=== PATIENT | female | born 1950 | race Caucasian/White ===

== ENCOUNTER 2018-06-20 07:14 | Inpatient (IN) ==
--- NOTE | 2018-06-20 08:31 | ED ---
HPI General Chief complaint: Medical Clearance Stated complaint: abnormal labs/doc sent Time Seen by Provider: 06/20/18 07:52 Source: patient Mode of arrival: ambulatory Limitations: no limitations History of Present Illness HPI Narrative: 68 years old female complains of generalized malaise and weakness and shortness of breath and black tarry stool. Patient states that she started having black tarry stools for the past 3 weeks. Patient states that she has generalized malaise and weakness for the past 7 weeks. Patient states that she had intermittent nausea vomiting and poor appetite over the same time. Patient states that she has poor appetite. Patient started having right lower quadrant abdominal pain for the past week. Patient states the pain is sharp pain intermittent pain localized to right lower quadrant of the abdomen. Patient denies any pain radiation. Patient denies any fever chills. Patient is on aspirin 81 mg daily. Patient has history of COPD, diabetes status post CVA. Patient denies history of GI bleed in the past. Patient states that she had a colonoscopy done about 5 years ago and was normal. 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 Patient was seen by a local physician yesterday and had blood test done. Patient was informed that her hemoglobin is less than 3. Patient was advised to go to ED for evaluation. MD complaint: Reports melena Onset (ago): week(s) Pain Consistency: intermittent Severity: mild Relieving factors: none Exacerbating factors: none Associated symptoms: Reports abdominal pain, nausea, vomiting, loss of appetite , malaise and shortness of breath Treatments Prior to Arrival: Reports none Related Data Home Medications Medication Instructions Recorded Confirmed budesonide-formoterol [Symbicort] 2 puff INHALATION BID 06/20/18 06/20/18 esomeprazole magnesium [Nexium] 40 mg PO DAILY 06/20/18 06/20/18 levothyroxine 50 mcg PO DAILY 06/20/18 06/20/18 linaclotide [Linzess] 145 mcg PO DAILY 06/20/18 06/20/18 pioglitazone 30 mg PO DAILY 06/20/18 06/20/18 sitagliptin [Januvia] 100 mg PO DAILY 06/20/18 06/20/18 tiotropium bromide [Spiriva with 1 cap INHALATION DAILY 06/20/18 06/20/18 HandiHaler] Allergies Allergy/AdvReac Type Severity Reaction Status Date / Time hydrocodone Allergy Chest Pain Verified 06/20/18 07:25 Review of Systems ROS: all other systems reviewed are negative PMFSH Medical History Medical History Amputation of finger, left (Acute) COPD (chronic obstructive pulmonary disease) (Acute) Diabetes (Acute) H/O: hysterectomy (Acute) Stroke (Acute) Social History Social History Smoking Status: Former smoker How Often Do You Have a Drink Containing Alcohol: Never Recent Travel in [place] within the Last 8 Weeks: No Recent Out of Country Travel within the Last 8 Weeks: No Immunization History Tetanus Immunization: >5 Years Exam Narrative Exam Narrative: GENERAL: Well-nourished, well-developed patient. SKIN: Focused skin assessment warm/dry. HEAD: Normocephalic. EYES: No scleral icterus. No injection or drainage. NECK: Supple, trachea midline. No JVD or lymphadenopathy. CARDIOVASCULAR: Regular rate and rhythm without murmurs, gallops, or rubs. RESPIRATORY: Breath sounds equal bilaterally. No accessory muscle use. GASTROINTESTINAL: Abdomen soft, nondistended. Patient has mild tenderness on palpation right lower quadrant of the abdomen. No rebound tenderness. No mass. Rectal exam Hemoccult trace positive. MUSCULOSKELETAL: No cyanosis, or edema. BACK: Nontender without obvious deformity. No CVA tenderness. Neurologic exam normal. Course Initial Documented Vital Signs Temperature 98.6 F 06/20/18 07:18 Pulse Rate 120 H 06/20/18 07:18 Respiratory Rate 20 06/20/18 07:18 Blood Pressure 110/51 L 06/20/18 07:18 Pulse Oximetry 96 06/20/18 07:18 Last Documented Vital Signs Temperature 97.4 F L 06/20/18 08:19 Pulse Rate 107 H 06/20/18 11:04 Respiratory Rate 16 06/20/18 11:04 Blood Pressure 109/53 L 06/20/18 11:04 Pulse Oximetry 95 06/20/18 11:04 Medical Decision Making MDM Narrative Medical decision making narrative: 68 years old female with black tarry stool and general malaise and weakness and right lower quadrant abdominal pain. Outpatient hemoglobin is less than 3. Normal saline solution 125 cc an hour. Type and screen. Protonix bolus and drip given. Octreotide drip started. Medical Screen Exam Complete: Yes Emergency Medical Condition: Yes Lab Data Lab results reviewed: Yes I reviewed the patient's lab results. Result diagrams: 06/20/18 08:00 06/20/18 08:00 Lab Results 06/20/18 06/20/18 06/20/18 Range/Units 08:00 08:00 08:00 WBC 7.5 (4.0-11.0) th/mm3 RBC 2.77 L (4.00-5.30) mil/mm3 Hgb 4.1 L* (11.6-15.3) gm/dL Hct 15.1 L* (35.0-46.0) % MCV 54.5 L (80.0-100.0) fL MCH 14.8 L (27.0-34.0) pg MCHC 27.2 L (32.0-36.0) % RDW 22.0 H (11.6-17.2) % Plt Count 360 (150-450) th/mm3 MPV 8.9 (7.0-11.0) fL Prelim Diff (Auto) Manual diff required WBC Differential Manual diff final Seg Neuts % (Manual) 85 H (16-70) % Lymphocytes % (Manual) 9 (9-44) % Monocytes % (Manual) 4 (0-8) % Eosinophils % (Manual) 1 (0-4) % Basophils % (Manual) 1 (0-2) % Abs Neuts (Manual) 6.4 (1.8-7.7) th/mm3 Nucleated RBCs/100 WBC 1 H (0-0) /100 WBC Differential Comment . Platelet Estimate Normal (Normal) Platelet Morphology Enlarged H (Normal) Basophilic Stippling Faint H (None) Target Cells 1+ H (None) Keratocytes Occ H (None) PT 10.7 (9.8-11.6) sec INR 1.1 Ratio APTT 22.3 L (23.4-31.7) sec Sodium 140 (136-145) meq/L Potassium 2.4 L* (3.5-5.1) meq/L Chloride 102 (98-107) meq/L Carbon Dioxide 29.2 (21.0-32.0) meq/L Anion Gap 9 (5-15) meq/L BUN 7 (7-18) mg/dL Creatinine 0.86 (0.50-1.00) mg/dL Estimated GFR 66 L (>89) mL/min Random Glucose 121 H (74-106) mg/dL Calcium 8.2 L (8.5-10.1) mg/dL Total Bilirubin 0.5 (0.2-1.0) mg/dL AST 30 (15-37) U/L ALT 24 (10-53) U/L Alkaline Phosphatase 73 (45-117) U/L Total Protein 6.7 (6.4-8.2) g/dL Albumin 3.3 L (3.4-5.0) g/dL Lipase 55 L (73-393) U/L Blood Type Blood Type Recheck Antibody Screen MTS Gel Crossmatch Bld Prod Order Comment 06/20/18 06/20/18 Range/Units 08:00 09:30 WBC (4.0-11.0) th/mm3 RBC (4.00-5.30) mil/mm3 Hgb (11.6-15.3) gm/dL Hct (35.0-46.0) % MCV (80.0-100.0) fL MCH (27.0-34.0) pg MCHC (32.0-36.0) % RDW (11.6-17.2) % Plt Count (150-450) th/mm3 MPV (7.0-11.0) fL Prelim Diff (Auto) WBC Differential Seg Neuts % (Manual) (16-70) % Lymphocytes % (Manual) (9-44) % Monocytes % (Manual) (0-8) % Eosinophils % (Manual) (0-4) % Basophils % (Manual) (0-2) % Abs Neuts (Manual) (1.8-7.7) th/mm3 Nucleated RBCs/100 WBC (0-0) /100 WBC Differential Comment Platelet Estimate (Normal) Platelet Morphology (Normal) Basophilic Stippling (None) Target Cells (None) Keratocytes (None) PT (9.8-11.6) sec INR Ratio APTT (23.4-31.7) sec Sodium (136-145) meq/L Potassium (3.5-5.1) meq/L Chloride (98-107) meq/L Carbon Dioxide (21.0-32.0) meq/L Anion Gap (5-15) meq/L BUN (7-18) mg/dL Creatinine (0.50-1.00) mg/dL Estimated GFR (>89) mL/min Random Glucose (74-106) mg/dL Calcium (8.5-10.1) mg/dL Total Bilirubin (0.2-1.0) mg/dL AST (15-37) U/L ALT (10-53) U/L Alkaline Phosphatase (45-117) U/L Total Protein (6.4-8.2) g/dL Albumin (3.4-5.0) g/dL Lipase (73-393) U/L Blood Type O Positive Blood Type Recheck Required Antibody Screen Negative MTS Gel Crossmatch See Detail Bld Prod Order Comment Imaging Data Attestation: I personally reviewed and interpreted this imaging study as follows : Radiologist's impression: Abdomen/Pelvis CT 06/20/18 09:54 CONCLUSION: 1. Cholelithiasis with single dense calcified gallstone with no wall thickening or inflammatory change. 2. Unremarkable appearing bowel gas pattern. 3. Mild to moderate hepatic steatosis. 4. Minute nonobstructing left renal calculus. 5. Minimal pleural fluid. Discharge Plan Discharge Disposition Patient Disposition: ED Admit(ED Internal Use Only) Discharge Details Diagnosis: Acute GI bleeding, Anemia, Acute hypokalemia Physicians Team ED Provider: Doron Lemus Primary Care Provider: UNKNOWN, Rxs /Orders / Referrals /Forms Prescriptions: No Action levothyroxine 50 mcg Tablet 50 mcg PO DAILY RF: 0 esomeprazole magnesium [Nexium] 40 mg Capsule,Delayed Release(Dr/Ec) 40 mg PO DAILY RF: 0 pioglitazone 30 mg Tablet 30 mg PO DAILY RF: 0 tiotropium bromide [Spiriva with HandiHaler] 18 mcg Capsule, W/Inhalation Device 1 cap INHALATION DAILY RF: 0 sitagliptin [Januvia] 100 mg Tablet 100 mg PO DAILY RF: 0 budesonide-formoterol [Symbicort] 160-4.5 mcg/actuation Hfa Aerosol Inhaler 2 puff INHALATION BID RF: 0 linaclotide [Linzess] 145 mcg Capsule 145 mcg PO DAILY RF: 0 Discharge Interventions Interventions: Vital Signs Last Done: 06/20/18 11:04 Status ED Status: With Doctor
[2018-06-20] MEDS: Sod Chloride 0.9% Inj 1,000 ML IV.CONT SCH ×2 (08:48→17:54)
[2018-06-20 08:54] LABS: Mean Corpuscular Hemoglobin 14.8 pg (27.0-34.0); Mean Corpuscular Volume 54.5 fL (80.0-100.0); Mean Platelet Volume 8.9 fL (7.0-11.0); Platelet Count 360 th/mm3 (150-450); Red Blood Count 2.77 mil/mm3 (4.00-5.30); White Blood Count 7.5 th/mm3 (4.0-11.0)
[2018-06-20 08:57] LABS: Mean Corpuscular HGB Conc 27.2 % (32.0-36.0)
[2018-06-20 09:00] LABS: Hemoglobin 4.1 gm/dL (11.6-15.3)
[2018-06-20] MEDS ORDERED: Pantoprazole Inj 80 MG in Sodium Chlor 0.9% Inj 100 ML IV.CONT SCH (09:00)
[2018-06-20 09:01] LABS: Hematocrit 15.1 % (35.0-46.0)
[2018-06-20] MEDS: Octreotide Inj 500 MCG in Sodium Chlor 0.9% Inj 500 ML IV.CONT SCH ×2 (09:12→22:25)
[2018-06-20 09:14] LABS: Activated Partial Thrombo Time 22.3 sec (23.4-31.7); INR 1.1 Ratio; Prothrombin Time 10.7 sec (9.8-11.6)
[2018-06-20 09:22] LABS: Eosinophils 1 % (0-4); Lymphocytes 9 % (9-44); Monocytes 4 % (0-8); Tallied Nucleated RBC 1 (0-0)
[2018-06-20 09:23] LABS: Platelet Estimate Normal (Normal); Target Cells 1+
[2018-06-20 09:40] LABS: Alanine Aminotransferase 24 U/L (10-53); Albumin 3.3 g/dL (3.4-5.0); Alkaline Phosphatase 73 U/L (45-117); Anion Gap 9 meq/L (5-15); Aspartate Aminotransferase 30 U/L (15-37); Blood Urea Nitrogen 7 mg/dL (7-18); Calcium 8.2 mg/dL (8.5-10.1); Carbon Dioxide 29.2 meq/L (21.0-32.0); Chloride 102 meq/L (98-107); Glomerular Filtration Rate 66 mL/min (>89); Glucose,Random 121 mg/dL (74-106); Lipase 55 U/L (73-393); Sodium 140 meq/L (136-145); Total Protein 6.7 g/dL (6.4-8.2)
[2018-06-20 09:45] LABS: Potassium 2.4 meq/L (3.5-5.1)
[2018-06-20] MEDS ORDERED: Potassium Chlor 20 mEq Premix 20 MEQ/100 ML PIGGYBACK IV.SIG ONE (09:46)
--- NOTE | 2018-06-20 10:34 | CT ---
EXAM DATE: 06/20/2018 10:25 AM EST AGE/SEX: 68 years / Female INDICATIONS: Right lower quadrant pain. Low hemoglobin. CLINICAL DATA: This is the patient's initial encounter. Patient reports that signs and symptoms have been present for 1 day and indicates a pain score of 2/10. MEDICAL/SURGICAL HISTORY: Diabetes. Chronic obstructive pulmonary disease. Cerebrovascular di sease. Hysterectomy. ORAL CONTRAST: No oral contrast ingested. RADIATION DOSE: 6.40 CTDI (mGy) COMPARISON: No prior exams available for comparison. TECHNIQUE: Multiple contiguous axial images were obtained through the abdomen and pelvis following b olus infusion of 68 ml Omnipaque 350 (iohexol) nonionic water-soluble contrast as a single exam dos e. No oral contrast ingested. Using automated exposure control and adjustment of the mA and/or kV ac cording to patient size, radiation dose was kept as low as reasonably achievable to obtain optimal di agnostic quality images. DICOM format image data is available electronically for review and comparis on. FINDINGS: Lower Lungs: Minimal pleural fluid is present right greater than left. A small amount pericardial flu id is present as well. There is a calcified granuloma in the right lung base. Liver: The liver has a homogeneous density without space-occupying lesion. There is no dilation of th e biliary tree. There is mild to moderate hepatic steatosis. There is a densely calcified 6 mm gallst one with no wall thickening or inflammatory change. Spleen: Homogeneous density without enlargement. Pancreas: Unremarkable without mass or calcification. Kidneys: Normal in size and shape. No evidence of mass or hydronephrosis. Is a minute less than 1 mm nonobstructing left renal calculus. Minimal pleural Adrenal Glands: Unremarkable. Aorta: The aorta and proximal iliac vessels are grossly unremarkable without aneurysmal dilation. Bowel/Mesentery: No oral contrast was given limiting the sensitivity exam. The bowel loops are grossl y unremarkable. The cecum and sigmoid colon have a normal configuration. Abdominal Wall: Intact. Retroperitoneum: No evidence of adenopathy in the retrocrural, para-aortic, or deep pelvic regions. Bladder: Contours are smooth. Reproductive Organs: No abnormal masses or calcifications seen. Inguinal: The inguinal region is unremarkable without evidence of adenopathy. Bony Structures: Unremarkable. CONCLUSION: 1. Cholelithiasis with single dense calcified gallstone with no wall thickening or inflammatory fall ge. 2. Unremarkable appearing bowel gas pattern. 3. Mild to moderate hepatic steatosis. 4. Minute nonobstructing left renal calculus. 5. Minimal pleural fluid. Electronically signed by: Guicho Burton MD Board Certified Radiologist 06/20/2018 10:32 AM EST
[2018-06-20 11:27] LABS: Bilirubin,Urine Negative (Negative); Clarity,Urine Clear (Clear); Color,Urine Straw (Yellw/Straw); Glucose,Urine (UA) Negative (Negative); Leukocyte Esterase,Urine Negative (Negative); Mucus,Urine Few /lpf (Occasional); Nitrite,Urine Negative (Negative); Specific Gravity,Urine 1.014 (1.002-1.035); Squamous Epithelial Cell,Urine 2 /hpf (0-5)
--- NOTE | 2018-06-20 11:38 | P.HPFP ---
History of Present Illness Primary Care Physician: UNKNOWN <GetachewrhysOneal R 06/22/18 10:07> UNKNOWN <Cary Castro 06/20/18 11:38> Chief Complaint: Fatigue <Cary Castro 06/20/18 14:02> History of Present Illness: 68-year-old female who presented to the ED with a 7- week history of generalized fatigue. She reports that she has also been short of breath and vomiting daily. The emesis is dark yellow. There has never been any blood in it. She reports a decreased appetite. At times she can only eat 2 -3 bites of her food. She has been able to drink at least 2 glasses of lemonade per day. Until today, she had not had a bowel movement in 4 weeks. The stool was "really dark brown but not black." The patient denied any bright red blood per rectum. Patient also reports mild right lower quadrant abdominal pain. The pain is intermittent does not radiate. This started about a week ago. Her last colonoscopy was 7 years ago and [facility]. She reports that it was normal and was to follow-up in 10 years. She had a cold guard test 2 years ago which was reportedly normal. 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 hypothyroidism GERD on [place] estrogen post hysterectomy Past surgical history: hysterectomy appendectomy finger amputation with machine accident Allergies: hydrocodone Family history: mother: unknown cancer father: diabetes Social history: lives in [facility] with your caregiver of brother in law independent with all ADLs previous smoker- quit about 1 year ago and has over 30 year smoking history no alcohol use no drug use <Cary Castro 06/20/18 14:02> - Diagnosis (1) Anemia (2) Acute GI bleeding (3) COPD (chronic obstructive pulmonary disease) (4) Diabetes (5) History of stroke (6) Chronic constipation (7) Acute hypokalemia (8) DVT prophylaxis (9) Nutrition, metabolism, and development symptoms <Oneal Hull R 06/22/18 10:07> (1) Anemia (2) Acute GI bleeding (3) COPD (chronic obstructive pulmonary disease) (4) Diabetes (5) History of stroke (6) Chronic constipation (7) Acute hypokalemia (8) DVT prophylaxis (9) Nutrition, metabolism, and development symptoms <[place] [id number] 06/20/18 18:53> Inpatient Certification: I certify that the inpatient services were ordered in accordance with Medicare regulations governing the order. This includes certification that hospital inpatient services are reasonable and necessary and in the case of services not specified as inpatient-only under 42 CFR 419.22(n), that they are appropriately provided as inpatient services in accordance to with the 2-midnight benchmark under 43 CFR 412.3(e) <Oneal Hull R 06/22/18 10:07> Review of Systems Constitutional: Reports anorexia, Reports chills, Reports headache(s), Reports lack of energy, Reports weakness, Reports weight loss (20 pounds in 7 weeks), Denies fever(s) <[address] 06/20/18 11:56> Eyes: Reports blurry vision, Reports change in vision <[address] 06/20/18 11:56> Ears, Nose, Mouth, and Throat: Reports difficulty swallowing, Reports dizziness , Denies bleeding gums, Denies nosebleed, Denies pain with swallowing < [place] [id number] 06/20/18 11:56> Cardiovascular: Reports foot swelling (chronic), Reports lightheadedness, Reports rapid, pounding, or irregular heartbeat, Reports shortness of breath, Denies chest pain <[address] 06/20/18 11:56> Respiratory: Reports chest congestion, Reports cough, Reports excessive phlegm production, Reports shortness of breath, Denies coughing up blood <[address] 06/20/18 11:56> Gastrointestinal: Reports black, tarry stools (5-6 weeks ago), Reports change in bowel habits, Reports feeling full early, Reports vomiting, Denies bright, red blood in stools, Denies coffee ground vomit, Denies vomiting blood < [address] 06/20/18 11:56> Genitourinary: Denies blood in urine, Denies difficulty urinating <[address] 06/20/18 11:56> Musculoskeletal: Reports muscle weakness <Cary Castro 06/20/18 11: 56> Skin/Breast: Reports itching, Denies rash <Cary Castro 06/20/18 11: 56> Neurologic: Denies frequent falls <Cary Castro 06/20/18 11:56> Psychiatric: Reports depression (situational), Denies thoughts of hurting/ killing others, Denies thoughts of hurting/killing yourself <Cary Castro 06/20/18 11:56> Endocrine: Denies increased thirst, Denies increased urination <Cary Castro 06/20/18 11:56> Hematologic/Lymphatic: Reports easy bruising, Denies easy bleeding <Cary Castro 06/20/18 11:56> PMFSH - History History Provided By: Patient <Cary Castro 06/20/18 11:38> - Medical History Medical History: Medical History (Last Reviewed 06/20/18 @ 08:28 by Doron Lemus MD) Amputation of finger, left COPD (chronic obstructive pulmonary disease) Diabetes H/O: hysterectomy Stroke <Oneal Hull 06/22/18 10:07> Medical History (Last Reviewed 06/20/18 @ 08:28 by Doron Lemus MD) Amputation of finger, left COPD (chronic obstructive pulmonary disease) Diabetes H/O: hysterectomy Stroke <Cary Castro 06/20/18 11:38> - Social History I have reviewed the patient's Social History: Yes <Cary Castro 14:02> - Tobacco History Tobacco Use In Past 30 Days: No <Cary Castro 06/20/18 14:02> Smoking Status: Former smoker <Cary Castro 06/20/18 11:38> - Alcohol History How Often Do You Have a Drink Containing Alcohol: Never <Cary Castro 06/20/18 11:38> - Travel History Recent Travel in the [place] Within the Last 8 Weeks: No <Cary Castro - 06/20/18 11:38> Recent Travel Out of the Country Within the Last 8 Weeks: No <Cary Castro - 06/20/18 11:38> - Immunization History Tetanus Immunization: >5 Years <Cary Castro - 06/20/18 11:38> Medications and Allergies Allergies Allergy/AdvReac Type Severity Reaction Status Date / Time hydrocodone Allergy Chest Pain Verified 06/20/18 07:25 <Oneal Hull R - 06/22/18 10:07> Home Medications Medication Instructions Recorded Confirmed Type budesonide-formoterol [Symbicort] 2 puff INHALATION BID 06/20/18 06/20/18 History esomeprazole magnesium [Nexium] 40 mg PO DAILY 06/20/18 06/20/18 History levothyroxine 50 mcg PO DAILY 06/20/18 06/20/18 History linaclotide [Linzess] 145 mcg PO DAILY 06/20/18 06/20/18 History pioglitazone 30 mg PO DAILY 06/20/18 06/20/18 History sitagliptin [Januvia] 100 mg PO DAILY 06/20/18 06/20/18 History tiotropium bromide [Spiriva with 1 cap INHALATION DAILY 06/20/18 06/20/18 History HandiHaler] <Oneal Hull R - 06/22/18 10:07> Active Medications: Active Medications Acetaminophen (Tylenol) 650 mg PO Q4H PRN PRN Reason: PAIN 1-10 AND/OR FEVER >101F Budesonide/Formoterol Fumarate (Symbicort 160/4.5 Mcg Inh) 2 puff INH BID [facility] Last Admin: 06/22/18 09:53 Dose: 2 puff Dextrose (D50w Vial) 50 ml IV.PUSH UNSCH PRN PRN Reason: PER HYPOGLYCEMIA PROTOCOL Glucagon (Glucagon Inj) 1 mg OTHER PRN PRN PRN Reason: for Hypoglycemia Protocol Sodium Chloride (Ns Inj) 1,000 mls @ 125 mls/hr IV.CONT .Q8H [facility] Last Admin: 06/22/18 09:52 Dose: Not Given Pantoprazole Sodium 80 mg/ (Sodium Chloride) 100 mls @ 10 mls/hr IV.CONT Q10H [facility] Last Admin: 06/22/18 09:53 Dose: 10 mls/hr Lactated Ringer's (Lr 1000 Ml Inj) 1,000 mls @ 30 mls/hr IV.CONT .Q24H ONE Stop: 06/22/18 11:59 Last Admin: 06/21/18 14:37 Dose: Not Given Insulin Aspart (Novolog Insulin Correctional Sugar Inj) 0 unit SQ ACHS AND 3AM NIMA; Protocol Last Admin: 06/22/18 09:58 Dose: Not Given Levothyroxine Sodium (Synthroid) 50 mcg PO DAILY@0600 [facility] Last Admin: 06/22/18 05:07 Dose: Not Given Pantoprazole Sodium (Protonix) 40 mg PO DAILY [facility] Patient Own Medication: Linaclotide 145 Mcg 0 each PO DAILY [facility] Potassium Chloride (Klor-Con 10) 30 meq PO DAILY [facility] Last Admin: 06/22/18 09:52 Dose: 30 meq Sodium Chloride (Ns Flush) 2 ml IV.FLUSH PRN PRN PRN Reason: FLUSH AFTER USING IV ACCESS Tiotropium Mobridge (Spiriva 18 Mcg Inh) 18 mcg INH DAILY [facility] Last Admin: 06/22/18 09:53 Dose: 18 mcg <Oneal Hull R - 06/22/18 10:07> Active Medications Pantoprazole Sodium 80 mg/ (Sodium Chloride) 100 mls @ 10 mls/hr IV.CONT CONT [facility] Last Admin: 06/20/18 08:48 Dose: 10 mls/hr Octreotide Acetate 500 mcg/ (Sodium Chloride) 500.5 mls @ 50.05 mls/hr IV.CONT .Q10H [facility]IM[facility] Last Admin: 06/20/18 09:12 Dose: 50 mcg/hr, 50.05 mls/hr Sodium Chloride (Ns Inj) 1,000 mls @ 125 mls/hr IV.CONT .Q8H [facility]IMA Last Admin: 06/20/18 08:48 Dose: 125 mls/hr Potassium Chloride (Kcl 20 Meq Premix Inj) 20 meq in 100 mls @ 50 mls/hr IV.SIG ONCE ONE Stop: 06/20/18 11:45 Last Admin: 06/20/18 10:59 Dose: 50 mls/hr <Cary Castro A - 06/20/18 11:38> Exam Vital signs: Vital Signs 06/21/18 12:00 06/21/18 12:32 06/21/18 16:00 Temperature 97.7 F 98.1 F 97.9 F Pulse Rate 101 H 99 H 103 H Respiratory Rate 18 18 20 Blood Pressure 149/72 H 127/60 135/68 Pulse Oximetry 94 L 94 L 93 L 06/21/18 20:00 06/22/18 00:00 06/22/18 04:00 Temperature 97.8 F 97.8 F 98.4 F Pulse Rate 102 H 102 H 97 H Respiratory Rate 18 18 18 Blood Pressure 119/56 L 113/56 L 128/63 Pulse Oximetry 91 L 93 L 93 L 06/22/18 08:00 Temperature 97.8 F Pulse Rate 94 H Respiratory Rate 18 Blood Pressure 124/67 Pulse Oximetry 94 L Intake & Output 06/21/18 06/22/18 06/22/18 18:59 06:59 18:59 Intake Total 2450.5 / 2450.5 100 / 100 Balance 2450.5 / 2450.5 100 / 100 Weight 70.3 kg Intake: IV 2250.5 / 2250.5 100 / 100 SandoSTATIN Inj 500 MCG In NS 150.5 / 150.5 Inj 500 ML @ 50 MCG/HR 50.05 mls/hr IV.CONT .Q10H [facility] Rx#: [id number] Protonix Inj 80 MG In NS Inj 100 / 100 100 / 100 100 ML @ 10 mls/hr IV.CONT Q10H [facility] Rx#:[id number] NS Inj 1,000 ML @ 125 mls/hr IV 1999 .CONT .Q8H [facility] Rx#:[id number] Anesthesia Amount 200 / 200 Other: # Voids 4 2 <Oneal Hull R - 06/22/18 10:07> Vital Signs 06/20/18 07:18 06/20/18 08:19 06/20/18 09:08 Temperature 98.6 F 97.4 F L Pulse Rate 120 H 94 H 98 H Respiratory Rate 20 16 16 Blood Pressure 110/51 L 104/52 L 105/51 L Pulse Oximetry 96 95 97 06/20/18 11:04 06/20/18 11:27 Temperature 98.2 F Pulse Rate 107 H 104 H Respiratory Rate 16 16 Blood Pressure 109/53 L 109/51 L Pulse Oximetry 95 97 Intake & Output 06/19/18 06/20/18 06/20/18 18:59 06:59 18:59 Intake Total 0 / 0 Balance 0 / 0 Weight 63.957 kg Intake: Intake (Blood Product) Amt 0 / 0 Rbc As-3 Leukoreduced Unit 0 / 0 [id number] <Cary Castro - 06/20/18 11:38> Narrative: GENERAL: Pleasant elderly female resting comfortably in hospital bed in no acute distress SKIN: No rashes, ecchymoses or lesions. Cool and dry. Mild facial pallor HEAD: Atraumatic. Normocephalic. EYES: Pupils equal round and reactive. Extraocular motions intact. No scleral icterus. No injection or drainage. ENT: Nose without bleeding, purulent drainage. NECK: Trachea midline. No lymphadenopathy. Supple, nontender. CARDIOVASCULAR: Regular rate and rhythm without murmurs, gallops, or rubs. RESPIRATORY: Breath sounds equal bilaterally. Minimal expiratory wheezes GASTROINTESTINAL: Abdomen soft, mildly tender in the right lower quadrant, without guarding. Positive bowel sounds, nondistended. No hepato-splenomegaly, or palpable masses. MUSCULOSKELETAL: Extremities without clubbing, cyanosis, or edema. No joint tenderness or effusion noted. No calf tenderness. NEUROLOGICAL: Awake and alert. Cranial nerves II through XII intact. Motor and sensory grossly within normal limits. Moves all extremities without difficulty. Normal speech. <Cary Castro - 06/20/18 16:49> Results - Labs Result diagrams: 06/22/18 06:49 06/22/18 06:49 <Oneal Hull R - 06/22/18 10:07> Abnormal lab results 06/21/18 06/21/18 06/21/18 Range/Units 11:01 11:01 13:19 WBC (4.0-11.0) th/mm3 Hgb 10.0 L (11.6-15.3) gm/dL Hct 31.3 L (35.0-46.0) % MCV 71.1 L D (80.0-100.0) fL MCH 22.7 L (27.0-34.0) pg MCHC (32.0-36.0) % RDW 33.1 H D (11.6-17.2) % Neut % (Auto) 83.7 H (16.0-70.0) % Lymph % (Auto) (9.0-44.0) % Neut # (Auto) 9.1 H (1.8-7.7) th/mm3 Lymph # (Auto) (1.0-4.8) th/mm3 Seg Neuts % (Manual) 90 H (16-70) % Lymphocytes % (Manual) 6 L (9-44) % Myelocytes % (Man) (0-0) % Abs Neuts (Manual) 10.0 H (1.8-7.7) th/mm3 Nucleated RBCs/100 WBC 7 H (0-0) /100 WBC Dimorphic RBCs (None) Spherocytes (None) Keratocytes (None) Potassium (3.5-5.1) meq/L Chloride 110 H (98-107) meq/L BUN 5 L (7-18) mg/dL Estimated GFR 76 L (>89) mL/min POC Glucose 133 H (68-110) mg/dl Random Glucose 121 H (74-106) mg/dL Calcium 6.8 L* D (8.5-10.1) mg/dL Calcium Adj for Albumin 7.5 L (8.5-10.1) mg/dL Total Bilirubin 1.6 H (0.2-1.0) mg/dL AST 60 H (15-37) U/L Albumin 3.1 L (3.4-5.0) g/dL 06/21/18 06/21/18 06/22/18 Range/Units 16:54 20:39 06:49 WBC 11.4 H (4.0-11.0) th/mm3 Hgb 9.1 L (11.6-15.3) gm/dL Hct 29.5 L (35.0-46.0) % MCV 71.5 L (80.0-100.0) fL MCH 22.2 L (27.0-34.0) pg MCHC 31.0 L (32.0-36.0) % RDW 33.8 H (11.6-17.2) % Neut % (Auto) 85.2 H (16.0-70.0) % Lymph % (Auto) 8.1 L (9.0-44.0) % Neut # (Auto) 9.8 H (1.8-7.7) th/mm3 Lymph # (Auto) 0.9 L (1.0-4.8) th/mm3 Seg Neuts % (Manual) 93 H (16-70) % Lymphocytes % (Manual) 5 L (9-44) % Myelocytes % (Man) 2 H (0-0) % Abs Neuts (Manual) 10.8 H (1.8-7.7) th/mm3 Nucleated RBCs/100 WBC 1 H (0-0) /100 WBC Dimorphic RBCs Present H (None) Spherocytes Occ H (None) Keratocytes Occ H (None) Potassium (3.5-5.1) meq/L Chloride (98-107) meq/L BUN (7-18) mg/dL Estimated GFR (>89) mL/min POC Glucose 143 H 139 H (68-110) mg/dl Random Glucose (74-106) mg/dL Calcium (8.5-10.1) mg/dL Calcium Adj for Albumin (8.5-10.1) mg/dL Total Bilirubin (0.2-1.0) mg/dL AST (15-37) U/L Albumin (3.4-5.0) g/dL 06/22/18 06/22/18 Range/Units 06:49 09:55 WBC (4.0-11.0) th/mm3 Hgb (11.6-15.3) gm/dL Hct (35.0-46.0) % MCV (80.0-100.0) fL MCH (27.0-34.0) pg MCHC (32.0-36.0) % RDW (11.6-17.2) % Neut % (Auto) (16.0-70.0) % Lymph % (Auto) (9.0-44.0) % Neut # (Auto) (1.8-7.7) th/mm3 Lymph # (Auto) (1.0-4.8) th/mm3 Seg Neuts % (Manual) (16-70) % Lymphocytes % (Manual) (9-44) % Myelocytes % (Man) (0-0) % Abs Neuts (Manual) (1.8-7.7) th/mm3 Nucleated RBCs/100 WBC (0-0) /100 WBC Dimorphic RBCs (None) Spherocytes (None) Keratocytes (None) Potassium 3.0 L (3.5-5.1) meq/L Chloride (98-107) meq/L BUN 5 L (7-18) mg/dL Estimated GFR (>89) mL/min POC Glucose 117 H (68-110) mg/dl Random Glucose 117 H (74-106) mg/dL Calcium 6.9 L* (8.5-10.1) mg/dL Calcium Adj for Albumin 7.7 L (8.5-10.1) mg/dL Total Bilirubin (0.2-1.0) mg/dL AST (15-37) U/L Albumin 3.0 L (3.4-5.0) g/dL Short CBC 06/21/18 06/22/18 Range/Units 11:01 06:49 WBC 10.9 11.4 H (4.0-11.0) th/mm3 Hgb 10.0 L 9.1 L (11.6-15.3) gm/dL Hct 31.3 L 29.5 L (35.0-46.0) % Plt Count 305 275 (150-450) th/mm3 BMP 06/21/18 06/22/18 11:01 06:49 Sodium 143 141 Potassium 3.6 3.0 L Chloride 110 H 107 Carbon Dioxide 27.0 25.0 BUN 5 L 5 L Creatinine 0.76 0.64 Calcium 6.8 L* D 6.9 L* Liver Function 06/21/18 06/22/18 Range/Units 11:01 06:49 Total Bilirubin 1.6 H (0.2-1.0) mg/dL AST 60 H (15-37) U/L ALT 33 (10-53) U/L Alkaline Phosphatase 80 (45-117) U/L Albumin 3.1 L 3.0 L (3.4-5.0) g/dL <Oneal Hull - 06/22/18 10:07> Abnormal lab results 06/20/18 06/20/18 06/20/18 Range/Units 08:00 08:00 08:00 RBC 2.77 L (4.00-5.30) mil/mm3 Hgb 4.1 L* (11.6-15.3) gm/dL Hct 15.1 L* (35.0-46.0) % MCV 54.5 L (80.0-100.0) fL MCH 14.8 L (27.0-34.0) pg MCHC 27.2 L (32.0-36.0) % RDW 22.0 H (11.6-17.2) % Seg Neuts % (Manual) 85 H (16-70) % Nucleated RBCs/100 WBC 1 H (0-0) /100 WBC Platelet Morphology Enlarged H (Normal) Basophilic Stippling Faint H (None) Target Cells 1+ H (None) Keratocytes Occ H (None) APTT 22.3 L (23.4-31.7) sec Potassium 2.4 L* (3.5-5.1) meq/L Estimated GFR 66 L (>89) mL/min Random Glucose 121 H (74-106) mg/dL Calcium 8.2 L (8.5-10.1) mg/dL Albumin 3.3 L (3.4-5.0) g/dL Lipase 55 L (73-393) U/L Urine Mucus (Occasional) /lpf MTS Gel Crossmatch 06/20/18 06/20/18 Range/Units 09:30 11:00 RBC (4.00-5.30) mil/mm3 Hgb (11.6-15.3) gm/dL Hct (35.0-46.0) % MCV (80.0-100.0) fL MCH (27.0-34.0) pg MCHC (32.0-36.0) % RDW (11.6-17.2) % Seg Neuts % (Manual) (16-70) % Nucleated RBCs/100 WBC (0-0) /100 WBC Platelet Morphology (Normal) Basophilic Stippling (None) Target Cells (None) Keratocytes (None) APTT (23.4-31.7) sec Potassium (3.5-5.1) meq/L Estimated GFR (>89) mL/min Random Glucose (74-106) mg/dL Calcium (8.5-10.1) mg/dL Albumin (3.4-5.0) g/dL Lipase (73-393) U/L Urine Mucus Few H (Occasional) /lpf MTS Gel Crossmatch See Detail Short CBC 06/20/18 Range/Units 08:00 WBC 7.5 (4.0-11.0) th/mm3 Hgb 4.1 L* (11.6-15.3) gm/dL Hct 15.1 L* (35.0-46.0) % Plt Count 360 (150-450) th/mm3 BMP 06/20/18 08:00 Sodium 140 Potassium 2.4 L* Chloride 102 Carbon Dioxide 29.2 BUN 7 Creatinine 0.86 Calcium 8.2 L Liver Function 06/20/18 Range/Units 08:00 Total Bilirubin 0.5 (0.2-1.0) mg/dL AST 30 (15-37) U/L ALT 24 (10-53) U/L Alkaline Phosphatase 73 (45-117) U/L Albumin 3.3 L (3.4-5.0) g/dL Urine 06/20/18 Range/Units 11:00 Urine Color Straw (Yellw/Straw) Urine Clarity Clear (Clear) Urine pH 7.0 (5.0-8.5) Ur Specific [place] 1.014 (1.002-1.035) Urine Protein Negative (Neg-Trace) mg/dL Urine Glucose (UA) Negative (Negative) mg/dL <Natalie StacyCary A - 06/20/18 11:38> - Imaging Impressions Abdomen/Pelvis CT 06/20/18 09:54 CONCLUSION: 1. Cholelithiasis with single dense calcified gallstone with no wall thickening or inflammatory change. 2. Unremarkable appearing bowel gas pattern. 3. Mild to moderate hepatic steatosis. 4. Minute nonobstructing left renal calculus. 5. Minimal pleural fluid. <Zhoue RegisCary A - 06/20/18 11:38> Caprini VTE Risk Assessment Caprini VTE Risk Assessment: Moderate/High Risk (score >= 2) <Zhoue Regis Cary A - 06/20/18 14:02> VTE Pharmacological Exception Reason: Active bleeding <Aureavre R1Cary A - 06/20/18 14:02> Caprini Risk Assessment Model: Point Value = 1 Point Value = 2 Point Value = 3 Point Value = 5 Age 41-60 Minor surgery BMI > 25 kg/m2 Swollen legs Varicose veins or History of unexplained or recurrent spontaneous Oral contraceptives or hormone replacement Sepsis (< 1 month) Serious lung disease, including pneumonia (< 1 month) Abnormal pulmonary function Acute myocardial infarction Congestive heart failure (< 1 month) History of inflammatory bowel disease Medical patient at bed rest Age 61-74 Arthroscopic surgery Major open surgery (> 45 min) Laparoscopic surgery (> 45 min) Malignancy Confined to bed (> 72 hours) Immobilizing plaster cast Central venous access Age >= 75 History of VTE Family history of VTE Factor V Leiden Prothrombin [id number] Lupus anticoagulant Anticardiolipin antibodies Elevated serum homocysteine Heparin-induced thrombocytopenia Other congenital or acquired thrombophilia Stroke (< 1 month) Elective arthroplasty Hip, pelvis, or leg fracture Acute spinal cord injury (< 1 month) <Oneal Hull - 06/22/18 10:07> Point Value = 1 Point Value = 2 Point Value = 3 Point Value = 5 Age 41-60 Minor surgery BMI > 25 kg/m2 Swollen legs Varicose veins or History of unexplained or recurrent spontaneous Oral contraceptives or hormone replacement Sepsis (< 1 month) Serious lung disease, including pneumonia (< 1 month) Abnormal pulmonary function Acute myocardial infarction Congestive heart failure (< 1 month) History of inflammatory bowel disease Medical patient at bed rest Age 61-74 Arthroscopic surgery Major open surgery (> 45 min) Laparoscopic surgery (> 45 min) Malignancy Confined to bed (> 72 hours) Immobilizing plaster cast Central venous access Age >= 75 History of VTE Family history of VTE Factor V Leiden Prothrombin [id number] Lupus anticoagulant Anticardiolipin antibodies Elevated serum homocysteine Heparin-induced thrombocytopenia Other congenital or acquired thrombophilia Stroke (< 1 month) Elective arthroplasty Hip, pelvis, or leg fracture Acute spinal cord injury (< 1 month) <Cary Castro - 06/20/18 11:38> Prophylaxis Regimen: Total Risk Factor Score Risk Level Prophylaxis Regimen 0-1 Low Early ambulation 2 Moderate Order ONE of the following: *Sequential Compression Device (SCD) *Heparin 5000 units SQ BID 3-4 Higher Order ONE of the following medications: *Heparin 5000 units SQ TID *Enoxaparin/Lovenox 40 mg SQ daily (WT < 150 kg, CrCl > 30 mL/min) *Enoxaparin/Lovenox 30 mg SQ daily (WT < 150 kg, CrCl > 10-29 mL/min) *Enoxaparin/Lovenox 30 mg SQ BID (WT < 150 kg, CrCl > 30 mL/min) AND/OR *Sequential Compression Device (SCD) 5 or more Highest Order ONE of the following medications: *Heparin 5000 units SQ TID (Preferred with Epidurals) *Enoxaparin/Lovenox 40 mg SQ daily (WT < 150 kg, CrCl > 30 mL/min) *Enoxaparin/Lovenox 30 mg SQ daily (WT < 150 kg, CrCl > 10-29 mL/min) *Enoxaparin/Lovenox 30 mg SQ BID (WT < 150 kg, CrCl > 30 mL/min) AND *Sequential Compression Device (SCD) <Oneal Hull - 06/22/18 10:07> Total Risk Factor Score Risk Level Prophylaxis Regimen 0-1 Low Early ambulation 2 Moderate Order ONE of the following: *Sequential Compression Device (SCD) *Heparin 5000 units SQ BID 3-4 Higher Order ONE of the following medications: *Heparin 5000 units SQ TID *Enoxaparin/Lovenox 40 mg SQ daily (WT < 150 kg, CrCl > 30 mL/min) *Enoxaparin/Lovenox 30 mg SQ daily (WT < 150 kg, CrCl > 10-29 mL/min) *Enoxaparin/Lovenox 30 mg SQ BID (WT < 150 kg, CrCl > 30 mL/min) AND/OR *Sequential Compression Device (SCD) 5 or more Highest Order ONE of the following medications: *Heparin 5000 units SQ TID (Preferred with Epidurals) *Enoxaparin/Lovenox 40 mg SQ daily (WT < 150 kg, CrCl > 30 mL/min) *Enoxaparin/Lovenox 30 mg SQ daily (WT < 150 kg, CrCl > 10-29 mL/min) *Enoxaparin/Lovenox 30 mg SQ BID (WT < 150 kg, CrCl > 30 mL/min) AND *Sequential Compression Device (SCD) <Cary Castro - 06/20/18 11:38> Assessment and Plan - Assessment (1) Anemia Code(s): D64.9 - Anemia, unspecified Status: Acute (2) Acute GI bleeding Code(s): K92.2 - Gastrointestinal hemorrhage, unspecified Status: Acute (3) COPD (chronic obstructive pulmonary disease) Code(s): J44.9 - Chronic obstructive pulmonary disease, unspecified Status: Chronic (4) Diabetes Code(s): E11.9 - Type 2 diabetes mellitus without complications Status: Chronic (5) History of stroke Code(s): Z86.73 - Personal history of transient ischemic attack (TIA), and cerebral infarction without residual deficits Status: Chronic (6) Chronic constipation Code(s): K59.09 - Other constipation Status: Chronic (7) Acute hypokalemia Code(s): E87.6 - Hypokalemia Status: Acute (8) DVT prophylaxis Status: Acute (9) Nutrition, metabolism, and development symptoms Code(s): R63.8 - Other symptoms and signs concerning food and fluid intake Status: Acute <Oneal Hull R - 06/22/18 10:07> (1) Anemia Code(s): D64.9 - Anemia, unspecified Status: Acute Plan: Patient was found to be severely anemic upon presentation in the ED. Her hemoglobin was 4.1. MCV was microcytic at 54.5 demonstrating this is likely a chronic process. The patient's vitals have been stable. Patient has had dark stools and emesis for 7 weeks indicating probable GI etiology for her anemia. The ED physician ordered 4 units of packed red blood cells, type and screen, Protonix drip, octreotide drip. -Consult GI, appreciate recommendations -Iron studies, per ED physician -Follow H&H -Continue Protonix drip -Continue octreotide drip -Hemoccult stool -Zofran 4 mg IV for nausea (2) Acute GI bleeding (3) COPD (chronic obstructive pulmonary disease) Code(s): J44.9 - Chronic obstructive pulmonary disease, unspecified Status: Acute Plan: Continue the patient's Spiriva and Symbicort. (4) Diabetes Code(s): E11.9 - Type 2 diabetes mellitus without complications Status: Acute Plan: Hold home pioglitazone and Januvia. Low-dose sliding scale insulin. (5) History of stroke Code(s): Z86.73 - Personal history of transient ischemic attack (TIA), and cerebral infarction without residual deficits Status: Acute Plan: Patient has a history of CVA with no reportable neurological deficits. -Monitor (6) Chronic constipation Code(s): K59.09 - Other constipation Status: Acute Plan: Patient is on Linzess at home. She reported that she had not had a bowel movement for almost 4 weeks prior to today. The patient has also experienced daily emesis which also can be a side effect of Linzess. While we are working up the patient's probable GI bleed and acute GI issues, will hold Linzess for now. (7) Acute hypokalemia Code(s): E87.6 - Hypokalemia Status: Acute Plan: Patient's potassium was 2.4 upon admission. In the ED, the patient received 20 mEq IV potassium and 40 mEq p.o. potassium. Hypokalemia is likely due to the chronic emesis. -We will repeat BMP and replete as necessary. (8) DVT prophylaxis Status: Acute Plan: Patient is actively bleeding. Bilateral SCDs. (9) Nutrition, metabolism, and development symptoms Code(s): R63.8 - Other symptoms and signs concerning food and fluid intake Status: Acute Plan: Fluids: Defer fluids for now as patient is receiving 4 units packed red blood cells. Electrolytes: Monitor replete as needed Nutrition: Clear liquid diet now and n.p.o. midnight <Cary aCstro - 06/20/18 18:53> - Attending Attestation THIS CASE WAS DISCUSSED WITH THE RESIDENT PHYSICIANS. I HAVE REVIEWED THE RECORD AND AGREE WITH THE ABOVE NOTE AND PLAN OF CARE WAS DISCUSSED. I HAVE AUTHORIZED THE ORDER FOR ADMISSION TO AN IN-PATIENT STATUS. Oneal Hull MD <Oneal Hull R - 06/22/18 10:07> <Cary Castro - Last Filed: 06/20/18 18:53> (1) Anemia Qualifiers: Anemia type: other cause Other causes of anemia: acute posthemorrhagic Qualified Code(s): D62 - Acute posthemorrhagic anemia <Oneal Hull R - Last Filed: 06/22/18 10:07> (1) Anemia Qualifiers: Anemia type: other cause Other causes of anemia: acute posthemorrhagic Qualified Code(s): D62 - Acute posthemorrhagic anemia (4) Diabetes Qualifiers: Diabetes mellitus type: type 2 <Natalie Cary Stacy - Last Filed: 06/20/18 18:53> (1) Anemia Qualifiers: Anemia type: other cause Other causes of anemia: acute posthemorrhagic Qualified Code(s): D62 - Acute posthemorrhagic anemia <GetachewrhysOneal R - Last Filed: 06/22/18 10:07> (1) Anemia Qualifiers: Anemia type: other cause Other causes of anemia: acute posthemorrhagic Qualified Code(s): D62 - Acute posthemorrhagic anemia (4) Diabetes Qualifiers: Diabetes mellitus type: type 2
[2018-06-20] MEDS ORDERED: Acetaminophen 325 MG Tablet PO PRN (12:07)
[2018-06-20] MEDS ORDERED: Dextrose 50% in Water 50 ML Vial IV.PUSH PRN (12:14)
[2018-06-20 12:36] LABS: Reticulocyte Percent 3.4 % (0.4-3.0)
[2018-06-20] MEDS ORDERED: LINACLOTIDE 145 MCG PO SCH (13:00)
[2018-06-20 13:01] LABS: % Iron Saturation 2.7 % (20-50)
[2018-06-20 13:26] LABS: Folate 2.6 ng/mL (3.1-17.5)
--- NOTE | 2018-06-20 14:43 | P.CONGI ---
History of Present Illness Consult date: 06/20/18 Consult reason: GI bleed Chief complaint: GI bleed, anemia, hyperkalemia History of Present Illness: Patient is a pleasant 68-year-old female with past medical history significant for COPD, diabetes, hypothyroidism and gastric esophageal reflux disease. Surgical history significant for hysterectomy, appendectomy and finger amputation. Patient presented to [facility] this a.m. with report of 7-8-week onset of increasing shortness of breath with dark colored emesis. Patient states that she was instructed to come to the hospital by her PCP for abnormal labs, hemoglobin 4.1. Patient endorses intermittent sharp right lower quadrant abdominal pain. Reports appetite has been poor for the last 8 weeks . Denies hematochezia or hematemesis. Denies constipation or diarrhea. Patient states that she has had very dark brown stools with 1-2 episodes of stools notably black. Patient states last colonoscopy was done 7 years ago along with upper endoscopy with unremarkable results. Patient states procedures were done by Dr. Brunson in [facility]. Patient endorses that she was not encouraged to repeat exams in 10 years. Patient denies use of NSAIDs except aspirin 81 mg p.o. daily. Denies use of prescription blood thinners. Patient denies use of alcohol products and states she stopped the use of tobacco products 1 year ago. Patient endorses occasional heartburn for which she feels Nexium is effective. Our service has been consulted to evaluate patient for GI bleeding. Review of Systems All other systems reviewed negative except as stated in HPI PMFSH - History History Provided By: Patient - Medical History Medical History: Medical History (Last Reviewed 06/20/18 @ 08:28 by Doron Lemus MD) Amputation of finger, left COPD (chronic obstructive pulmonary disease) Diabetes H/O: hysterectomy Stroke - Tobacco History Tobacco Use In Past 30 Days: No Smoking Status: Former smoker - Alcohol History How Often Do You Have a Drink Containing Alcohol: Never - Travel History Recent Travel in the [place] Within the Last 8 Weeks: No Recent Travel Out of the Country Within the Last 8 Weeks: No - Immunization History Tetanus Immunization: >5 Years Medications and Allergies Active Medications: Active Medications Acetaminophen (Tylenol) 650 mg PO Q4H PRN PRN Reason: Temp > 100.4 Budesonide/Formoterol Fumarate (Symbicort 160/4.5 Mcg Inh) 2 puff INH BID NIMA Dextrose (D50w Vial) 50 ml IV.PUSH UNSCH PRN PRN Reason: PER HYPOGLYCEMIA PROTOCOL Glucagon (Glucagon Inj) 1 mg OTHER PRN PRN PRN Reason: for Hypoglycemia Protocol Pantoprazole Sodium 80 mg/ (Sodium Chloride) 100 mls @ 10 mls/hr IV.CONT CONT NIMA Last Admin: 06/20/18 08:48 Dose: 10 mls/hr Octreotide Acetate 500 mcg/ (Sodium Chloride) 500.5 mls @ 50.05 mls/hr IV.CONT .Q10H NIMA Last Admin: 06/20/18 09:12 Dose: 50 mcg/hr, 50.05 mls/hr Sodium Chloride (Ns Inj) 1,000 mls @ 125 mls/hr IV.CONT .Q8H NIMA Last Admin: 06/20/18 08:48 Dose: 125 mls/hr Insulin Aspart (Novolog Insulin Correctional Sugar Inj) 0 unit SQ ACHS AND 3AM NIMA; Protocol Levothyroxine Sodium (Synthroid) 50 mcg PO DAILY@0600 [facility] Pantoprazole Sodium (Protonix) 40 mg PO DAILY [facility] Patient Own Medication: Linaclotide 145 Mcg 0 each PO DAILY [facility] Sodium Chloride (Ns Flush) 2 ml IV.FLUSH PRN PRN PRN Reason: FLUSH AFTER USING IV ACCESS Tiotropium Byron (Spiriva 18 Mcg Inh) 18 mcg INH DAILY [facility] Allergies Allergy/AdvReac Type Severity Reaction Status Date / Time hydrocodone Allergy Chest Pain Verified 06/20/18 07:25 Home Medications Medication Instructions Recorded Confirmed Type budesonide-formoterol [Symbicort] 2 puff INHALATION BID 06/20/18 06/20/18 History esomeprazole magnesium [Nexium] 40 mg PO DAILY 06/20/18 06/20/18 History levothyroxine 50 mcg PO DAILY 06/20/18 06/20/18 History linaclotide [Linzess] 145 mcg PO DAILY 06/20/18 06/20/18 History pioglitazone 30 mg PO DAILY 06/20/18 06/20/18 History sitagliptin [Januvia] 100 mg PO DAILY 06/20/18 06/20/18 History tiotropium bromide [Spiriva with 1 cap INHALATION DAILY 06/20/18 06/20/18 History HandiHaler] Exam Vital signs: Vital Signs 06/20/18 07:18 06/20/18 08:19 06/20/18 09:08 Temperature 98.6 F 97.4 F L Pulse Rate 120 H 94 H 98 H Respiratory Rate 20 16 16 Blood Pressure 110/51 L 104/52 L 105/51 L Pulse Oximetry 96 95 97 06/20/18 11:04 06/20/18 11:27 06/20/18 11:44 Temperature 98.2 F 98.5 F Pulse Rate 107 H 104 H 100 H Respiratory Rate 16 16 20 Blood Pressure 109/53 L 109/51 L 110/55 L Pulse Oximetry 95 97 98 06/20/18 12:30 06/20/18 13:30 Temperature Pulse Rate 97 H 90 Respiratory Rate 17 16 Blood Pressure 109/56 L 112/57 L Pulse Oximetry 98 97 Intake & Output 06/19/18 06/20/18 06/20/18 18:59 06:59 18:59 Intake Total 0 / 0 Balance 0 / 0 Weight 63.957 kg Intake: Intake (Blood Product) Amt 0 / 0 Rbc As-3 Leukoreduced Unit 0 / 0 [id number] - Constitutional no acute distress, cooperative - Routine HEENT Exam Head: Present: normocephalic, atraumatic - Routine Neck Exam Present: supple - Routine Respiratory Exam Present: CTA bilaterally. Absent: accessory muscle use - Routine Cardiovascular Exam Present: RRR - Routine Abdominal Exam Present: soft, normoactive bowel sounds. Absent: tenderness, distended, guarding, firm - Routine Extremities Exam Absent: edema - Routine Skin Exam Present: dry, warm - Routine Neurological Exam Present: alert, oriented X3 Results - Labs CBC & Chem 7: 06/20/18 08:00 06/20/18 08:00 Labs: Laboratory Results - last 24 hr 06/20/18 06/20/18 06/20/18 08:00 08:00 08:00 WBC 7.5 RBC 2.77 L Hgb 4.1 L* Hct 15.1 L* MCV 54.5 L MCH 14.8 L MCHC 27.2 L RDW 22.0 H Plt Count 360 MPV 8.9 Prelim Diff (Auto) Manual diff required WBC Differential Manual diff final Seg Neuts % (Manual) 85 H Lymphocytes % (Manual) 9 Monocytes % (Manual) 4 Eosinophils % (Manual) 1 Basophils % (Manual) 1 Abs Neuts (Manual) 6.4 Nucleated RBCs/100 WBC 1 H Differential Comment . Platelet Estimate Normal Platelet Morphology Enlarged H Basophilic Stippling Faint H Target Cells 1+ H Keratocytes Occ H Retic Count Absolute Retic Haptoglobin PT 10.7 INR 1.1 APTT 22.3 L Sodium 140 Potassium 2.4 L* Chloride 102 Carbon Dioxide 29.2 Anion Gap 9 BUN 7 Creatinine 0.86 Estimated GFR 66 L Random Glucose 121 H Calcium 8.2 L Iron TIBC % Saturation Ferritin Total Bilirubin 0.5 AST 30 ALT 24 Alkaline Phosphatase 73 Total Protein 6.7 Albumin 3.3 L Lipase 55 L Vitamin B12 Folate TSH Urine Color Urine Clarity Urine pH Ur Specific [place] Urine Protein Urine Glucose (UA) Urine Ketones Urine Occult Blood Urine Nitrate Urine Bilirubin Urine Urobilinogen Ur Leukocyte Esterase Urine RBC Urine WBC Ur Squamous Epith Cells Urine Mucus Micro UA Comment Ur Microscopic Review Urine Culture Comments Blood Type Blood Type Recheck Antibody Screen MTS Gel Crossmatch Bld Prod Order Comment 06/20/18 06/20/18 06/20/18 08:00 08:00 08:00 WBC RBC Hgb Hct MCV MCH MCHC RDW Plt Count MPV Prelim Diff (Auto) WBC Differential Seg Neuts % (Manual) Lymphocytes % (Manual) Monocytes % (Manual) Eosinophils % (Manual) Basophils % (Manual) Abs Neuts (Manual) Nucleated RBCs/100 WBC Differential Comment Platelet Estimate Platelet Morphology Basophilic Stippling Target Cells Keratocytes Retic Count 3.4 H Absolute Retic 94.2 Haptoglobin 165 PT INR APTT Sodium Potassium Chloride Carbon Dioxide Anion Gap BUN Creatinine Estimated GFR Random Glucose Calcium Iron 13 L TIBC 489 H % Saturation 2.7 L Ferritin 3 L Total Bilirubin AST ALT Alkaline Phosphatase Total Protein Albumin Lipase Vitamin B12 520 Folate 2.6 L TSH Urine Color Urine Clarity Urine pH Ur Specific [place] Urine Protein Urine Glucose (UA) Urine Ketones Urine Occult Blood Urine Nitrate Urine Bilirubin Urine Urobilinogen Ur Leukocyte Esterase Urine RBC Urine WBC Ur Squamous Epith Cells Urine Mucus Micro UA Comment Ur Microscopic Review Urine Culture Comments Blood Type O Positive Blood Type Recheck Required Antibody Screen Negative MTS Gel Crossmatch Bld Prod Order Comment 06/20/18 06/20/18 06/20/18 08:00 09:30 11:00 WBC RBC Hgb Hct MCV MCH MCHC RDW Plt Count MPV Prelim Diff (Auto) WBC Differential Seg Neuts % (Manual) Lymphocytes % (Manual) Monocytes % (Manual) Eosinophils % (Manual) Basophils % (Manual) Abs Neuts (Manual) Nucleated RBCs/100 WBC Differential Comment Platelet Estimate Platelet Morphology Basophilic Stippling Target Cells Keratocytes Retic Count Absolute Retic Haptoglobin PT INR APTT Sodium Potassium Chloride Carbon Dioxide Anion Gap BUN Creatinine Estimated GFR Random Glucose Calcium Iron TIBC % Saturation Ferritin Total Bilirubin AST ALT Alkaline Phosphatase Total Protein Albumin Lipase Vitamin B12 Folate TSH 3.540 Urine Color Straw Urine Clarity Clear Urine pH 7.0 Ur Specific [place] 1.014 Urine Protein Negative Urine Glucose (UA) Negative Urine Ketones Negative Urine Occult Blood Negative Urine Nitrate Negative Urine Bilirubin Negative Urine Urobilinogen Less than 2 Ur Leukocyte Esterase Negative Urine RBC Less than 1 Urine WBC 1 Ur Squamous Epith Cells 2 Urine Mucus Few H Micro UA Comment Culture not ind Ur Microscopic Review Not Reportable Urine Culture Comments Culture not ind Blood Type Blood Type Recheck Antibody Screen MTS Gel Crossmatch See Detail Bld Prod Order Comment - Imaging Impressions Abdomen/Pelvis CT 06/20/18 09:54 CONCLUSION: 1. Cholelithiasis with single dense calcified gallstone with no wall thickening or inflammatory change. 2. Unremarkable appearing bowel gas pattern. 3. Mild to moderate hepatic steatosis. 4. Minute nonobstructing left renal calculus. 5. Minimal pleural fluid. Assessment and Plan (1) Acute GI bleeding Status: Acute Code(s): K92.2 - Gastrointestinal hemorrhage, unspecified - Plan Patient is a pleasant 68-year-old female with past medical history significant for COPD, diabetes, hypothyroidism and gastric esophageal reflux disease. Surgical history significant for hysterectomy, appendectomy and finger amputation. Patient presented to [facility] this a.m. with report of 7-8-week onset of increasing shortness of breath with dark colored emesis. Patient states that she was instructed to come to the hospital by her PCP for abnormal labs, hemoglobin 4.1. Patient endorses intermittent sharp right lower quadrant abdominal pain. Reports appetite has been poor for the last 8 weeks . Denies diarrhea or constipation. Denies hematochezia or hematemesis. Patient states that she has had very dark brown stools with 1-2 episodes of stools notably black. Patient states last colonoscopy was done 7 years ago along with upper endoscopy with unremarkable results. Patient states procedures were done by Dr. Brunson in [facility]. Patient endorses that she was not encouraged to repeat exams in 10 years. Patient denies use of NSAIDs except aspirin 81 mg p.o. daily. Denies use of prescription blood thinners. Patient denies use of alcohol products and states she stopped the use of tobacco products 1 year ago. Patient endorses occasional heartburn for which she feels Nexium is effective. Our service has been consulted to evaluate patient for GI bleeding. GI bleed Patient endorses 7-8-week history of increasing shortness of breath with dark colored emesis and 1-2 episodes of black stools. Denies use of NSAIDs with the exception of aspirin 81 mg p.o. daily. Reports history of GERD for which she uses Nexium daily. Admitted to [facility] with hemoglobin 4.1. Plan -Clear liquid diet -N.p.o. after midnight -Obtain consent for EGD--if no identifiable bleeding source found, will proceed with colonoscopy -PPI--Octreotide -Monitor for active bleeding -Monitor hemoglobin hematocrit -Transfuse as required -Supportive care -Further recommendations to follow This patient has been seen by myself and Dr. Fink and this note is written on his behalf - Attending Attestation Dr. Fink
[2018-06-20] MEDS ORDERED: Influenza (Quadrivalent) Vaccine 0.5 ML Syringe IM ONE (16:00)
[2018-06-20] MEDS: Budesonide-Formoterol 160/4.5 MCG 6 GM Inhaler INH SCH ×2 (16:58→21:21)
[2018-06-20 17:15] LABS: Hematocrit 22.9 % (35.0-46.0)
[2018-06-20] MEDS: Insulin NovoLOG Aspart Correctional Sugar Inj SQ SCH ×2 (17:38→21:21)
[2018-06-20 17:51] LABS: Calcium 7.6 mg/dL (8.5-10.1); Carbon Dioxide 28.9 meq/L (21.0-32.0); Potassium 3.4 meq/L (3.5-5.1)
[2018-06-20] MEDS ORDERED: Potassium Chloride 25 MEQ Effervescent Tablet PO ONE (21:00)
[2018-06-20] MEDS: Pantoprazole Inj 80 MG in Sodium Chlor 0.9% Inj 100 ML IV.CONT SCH (22:14)
[2018-06-21] MEDS: Sod Chloride 0.9% Inj 1,000 ML IV.CONT SCH ×3 (00:40→20:35)
[2018-06-21 00:44] LABS: Hematocrit 27.7 % (35.0-46.0); Hemoglobin 9.2 gm/dL (11.6-15.3)
[2018-06-21] MEDS: Insulin NovoLOG Aspart Correctional Sugar Inj SQ SCH ×5 (03:44→20:41)
[2018-06-21] MEDS: Levothyroxine 50 MCG Tablet PO SCH (05:57)
[2018-06-21] MEDS: Pantoprazole Inj 80 MG in Sodium Chlor 0.9% Inj 100 ML IV.CONT SCH ×3 (05:58→23:30)
[2018-06-21] MEDS: Octreotide Inj 500 MCG in Sodium Chlor 0.9% Inj 500 ML IV.CONT SCH ×2 (08:45→20:34)
[2018-06-21] MEDS: Tiotropium Bromide 18 MCG/ACT Inhaler INH SCH (08:45)
[2018-06-21] MEDS: Budesonide-Formoterol 160/4.5 MCG 6 GM Inhaler INH SCH ×2 (08:45→20:41)
--- NOTE | 2018-06-21 11:23 | ECG ---
Date Performed: 06/20/2018 Time Performed: 18:15:56 PTAGE: 68 years EKG: Sinus rhythm LOW QRS VOLTAGE IN PRECORDIAL LEADS BORDERLINE ECG NO PREVIOUS TRACING DOCTOR: Balwinder Kirkpatrick Interpretating Date/Time 06/21/2018 11:19:21
[2018-06-21 11:24] LABS: Baso # (Auto) 0.1 th/mm3 (0.0-0.2); Eos # (Auto) 0.1 th/mm3 (0.0-0.4); Eos % (Auto) 0.6 % (0.0-4.0); Hematocrit 31.3 % (35.0-46.0); Lymph # (Auto) 1.1 th/mm3 (1.0-4.8); Lymph % (Auto) 9.7 % (9.0-44.0); Mean Corpuscular Hemoglobin 22.7 pg (27.0-34.0); Mean Corpuscular Volume 71.1 fL (80.0-100.0); Mean Platelet Volume 8.8 fL (7.0-11.0); Mono # (Auto) 0.5 th/mm3 (0.0-0.9); Neut # (Auto) 9.1 th/mm3 (1.8-7.7); Neut % (Auto) 83.7 % (16.0-70.0); Platelet Count 305 th/mm3 (150-450); Red Cell Distribution Width 33.1 % (11.6-17.2); White Blood Count 10.9 th/mm3 (4.0-11.0)
[2018-06-21 11:45] LABS: Albumin 3.1 g/dL (3.4-5.0); Calcium 6.8 mg/dL (8.5-10.1); Potassium 3.6 meq/L (3.5-5.1)
[2018-06-21] MEDS ORDERED: Lidocaine PF 1% Inj 5 ML Syringe OTHER ONE (11:56)
[2018-06-21 11:58] LABS: Total Protein 6.7 g/dL (6.4-8.2)
[2018-06-21] MEDS ORDERED: Sodium Chlor 0.9% Inj 500 ML IV.CONT ONE (12:00)
[2018-06-21] MEDS ORDERED: Chlorhexidine Gluconate 2% 1 Pack (2 Cloths) TOPICAL ONE (12:00)
[2018-06-21] MEDS ORDERED: Metoprolol Tartrate 25 MG Tablet PO ONE (12:00)
[2018-06-21 12:04] LABS: Lymphocytes 6 % (9-44); Metamyelocytes 1 % (0-1); Monocytes 2 % (0-8); Tallied Nucleated RBC 7 (0-0)
[2018-06-21 12:05] LABS: Platelet Estimate Normal (Normal); Platelet Morphology Normal (Normal)
--- NOTE | 2018-06-21 12:20 | P.PNFP ---
Subjective Interval history: Patient was seen and examined at bedside today. She was sitting up in chair and comfortable aside from gas pains since starting IV medications octreotide and protonix. She feels much better since receiving blood transfusions. She has appetite this morning and hopes to be able to eat after procedure. She denies chest pain, shortness of breath, nausea, vomiting. She understands that plan is for EGD this AM, and for colonoscopy if no source of bleeding is found on EGD. <River DysonDinorah L - 06/21/18 12:19> Results - Labs Result diagrams: 06/22/18 06:49 06/22/18 06:49 <Oneal Hull R - 06/22/18 13:30> Abnormal lab results 06/21/18 06/21/18 06/22/18 Range/Units 16:54 20:39 06:49 WBC 11.4 H (4.0-11.0) th/mm3 Hgb 9.1 L (11.6-15.3) gm/dL Hct 29.5 L (35.0-46.0) % MCV 71.5 L (80.0-100.0) fL MCH 22.2 L (27.0-34.0) pg MCHC 31.0 L (32.0-36.0) % RDW 33.8 H (11.6-17.2) % Neut % (Auto) 85.2 H (16.0-70.0) % Lymph % (Auto) 8.1 L (9.0-44.0) % Neut # (Auto) 9.8 H (1.8-7.7) th/mm3 Lymph # (Auto) 0.9 L (1.0-4.8) th/mm3 Seg Neuts % (Manual) 93 H (16-70) % Lymphocytes % (Manual) 5 L (9-44) % Myelocytes % (Man) 2 H (0-0) % Abs Neuts (Manual) 10.8 H (1.8-7.7) th/mm3 Nucleated RBCs/100 WBC 1 H (0-0) /100 WBC Dimorphic RBCs Present H (None) Spherocytes Occ H (None) Keratocytes Occ H (None) Potassium (3.5-5.1) meq/L BUN (7-18) mg/dL POC Glucose 143 H 139 H (68-110) mg/dl Random Glucose (74-106) mg/dL Calcium (8.5-10.1) mg/dL Calcium Adj for Albumin (8.5-10.1) mg/dL Albumin (3.4-5.0) g/dL 06/22/18 06/22/18 Range/Units 06:49 09:55 WBC (4.0-11.0) th/mm3 Hgb (11.6-15.3) gm/dL Hct (35.0-46.0) % MCV (80.0-100.0) fL MCH (27.0-34.0) pg MCHC (32.0-36.0) % RDW (11.6-17.2) % Neut % (Auto) (16.0-70.0) % Lymph % (Auto) (9.0-44.0) % Neut # (Auto) (1.8-7.7) th/mm3 Lymph # (Auto) (1.0-4.8) th/mm3 Seg Neuts % (Manual) (16-70) % Lymphocytes % (Manual) (9-44) % Myelocytes % (Man) (0-0) % Abs Neuts (Manual) (1.8-7.7) th/mm3 Nucleated RBCs/100 WBC (0-0) /100 WBC Dimorphic RBCs (None) Spherocytes (None) Keratocytes (None) Potassium 3.0 L (3.5-5.1) meq/L BUN 5 L (7-18) mg/dL POC Glucose 117 H (68-110) mg/dl Random Glucose 117 H (74-106) mg/dL Calcium 6.9 L* (8.5-10.1) mg/dL Calcium Adj for Albumin 7.7 L (8.5-10.1) mg/dL Albumin 3.0 L (3.4-5.0) g/dL Short CBC 06/22/18 Range/Units 06:49 WBC 11.4 H (4.0-11.0) th/mm3 Hgb 9.1 L (11.6-15.3) gm/dL Hct 29.5 L (35.0-46.0) % Plt Count 275 (150-450) th/mm3 BMP 06/22/18 06:49 Sodium 141 Potassium 3.0 L Chloride 107 Carbon Dioxide 25.0 BUN 5 L Creatinine 0.64 Calcium 6.9 L* Liver Function 06/22/18 Range/Units 06:49 Albumin 3.0 L (3.4-5.0) g/dL <Oneal Hull R - 06/22/18 13:30> Abnormal lab results 06/20/18 06/20/18 06/20/18 Range/Units 08:00 08:00 09:30 Hgb (11.6-15.3) gm/dL Hct (35.0-46.0) % MCV (80.0-100.0) fL MCH (27.0-34.0) pg RDW (11.6-17.2) % Neut % (Auto) (16.0-70.0) % Neut # (Auto) (1.8-7.7) th/mm3 Retic Count 3.4 H (0.4-3.0) % Potassium (3.5-5.1) meq/L Chloride (98-107) meq/L BUN (7-18) mg/dL Estimated GFR (>89) mL/min POC Glucose (68-110) mg/dl Random Glucose (74-106) mg/dL Calcium (8.5-10.1) mg/dL Calcium Adj for Albumin (8.5-10.1) mg/dL Iron 13 L (50-170) mcg/dL TIBC 489 H (250-450) mcg/dL % Saturation 2.7 L (20-50) % Ferritin 3 L (8-252) ng/mL Total Bilirubin (0.2-1.0) mg/dL AST (15-37) U/L Albumin (3.4-5.0) g/dL Folate 2.6 L (3.1-17.5) ng/mL MTS Gel Crossmatch See Detail 06/20/18 06/20/18 06/20/18 Range/Units 16:59 16:59 17:18 Hgb 7.0 L D (11.6-15.3) gm/dL Hct 22.9 L (35.0-46.0) % MCV (80.0-100.0) fL MCH (27.0-34.0) pg RDW (11.6-17.2) % Neut % (Auto) (16.0-70.0) % Neut # (Auto) (1.8-7.7) th/mm3 Retic Count (0.4-3.0) % Potassium 3.4 L D (3.5-5.1) meq/L Chloride (98-107) meq/L BUN (7-18) mg/dL Estimated GFR 67 L (>89) mL/min POC Glucose 117 H (68-110) mg/dl Random Glucose 118 H (74-106) mg/dL Calcium 7.6 L (8.5-10.1) mg/dL Calcium Adj for Albumin (8.5-10.1) mg/dL Iron (50-170) mcg/dL TIBC (250-450) mcg/dL % Saturation (20-50) % Ferritin (8-252) ng/mL Total Bilirubin (0.2-1.0) mg/dL AST (15-37) U/L Albumin (3.4-5.0) g/dL Folate (3.1-17.5) ng/mL MTS Gel Crossmatch 06/20/18 06/21/18 06/21/18 Range/Units 21:19 00:29 03:27 Hgb 9.2 L D (11.6-15.3) gm/dL Hct 27.7 L (35.0-46.0) % MCV (80.0-100.0) fL MCH (27.0-34.0) pg RDW (11.6-17.2) % Neut % (Auto) (16.0-70.0) % Neut # (Auto) (1.8-7.7) th/mm3 Retic Count (0.4-3.0) % Potassium (3.5-5.1) meq/L Chloride (98-107) meq/L BUN (7-18) mg/dL Estimated GFR (>89) mL/min POC Glucose 146 H 118 H (68-110) mg/dl Random Glucose (74-106) mg/dL Calcium (8.5-10.1) mg/dL Calcium Adj for Albumin (8.5-10.1) mg/dL Iron (50-170) mcg/dL TIBC (250-450) mcg/dL % Saturation (20-50) % Ferritin (8-252) ng/mL Total Bilirubin (0.2-1.0) mg/dL AST (15-37) U/L Albumin (3.4-5.0) g/dL Folate (3.1-17.5) ng/mL MTS Gel Crossmatch 06/21/18 06/21/18 06/21/18 Range/Units 08:05 11:01 11:01 Hgb 10.0 L (11.6-15.3) gm/dL Hct 31.3 L (35.0-46.0) % MCV 71.1 L D (80.0-100.0) fL MCH 22.7 L (27.0-34.0) pg RDW 33.1 H D (11.6-17.2) % Neut % (Auto) 83.7 H (16.0-70.0) % Neut # (Auto) 9.1 H (1.8-7.7) th/mm3 Retic Count (0.4-3.0) % Potassium (3.5-5.1) meq/L Chloride 110 H (98-107) meq/L BUN 5 L (7-18) mg/dL Estimated GFR 76 L (>89) mL/min POC Glucose 125 H (68-110) mg/dl Random Glucose 121 H (74-106) mg/dL Calcium 6.8 L* D (8.5-10.1) mg/dL Calcium Adj for Albumin 7.5 L (8.5-10.1) mg/dL Iron (50-170) mcg/dL TIBC (250-450) mcg/dL % Saturation (20-50) % Ferritin (8-252) ng/mL Total Bilirubin 1.6 H (0.2-1.0) mg/dL AST 60 H (15-37) U/L Albumin 3.1 L (3.4-5.0) g/dL Folate (3.1-17.5) ng/mL MTS Gel Crossmatch Short CBC 06/20/18 06/21/18 06/21/18 Range/Units 16:59 00:29 11:01 WBC 10.9 (4.0-11.0) th/mm3 Hgb 7.0 L D 9.2 L D 10.0 L (11.6-15.3) gm/dL Hct 22.9 L 27.7 L 31.3 L (35.0-46.0) % Plt Count 305 (150-450) th/mm3 BMP 06/20/18 06/21/18 16:59 11:01 Sodium 138 143 Potassium 3.4 L D 3.6 Chloride 103 110 H Carbon Dioxide 28.9 27.0 BUN 7 5 L Creatinine 0.85 0.76 Calcium 7.6 L 6.8 L* D Liver Function 06/21/18 Range/Units 11:01 Total Bilirubin 1.6 H (0.2-1.0) mg/dL AST 60 H (15-37) U/L ALT 33 (10-53) U/L Alkaline Phosphatase 80 (45-117) U/L Albumin 3.1 L (3.4-5.0) g/dL <River R3Dinorah L - 06/21/18 12:19> Physical Exam Vital signs: Vital Signs 06/21/18 16:00 06/21/18 20:00 06/22/18 00:00 Temperature 97.9 F 97.8 F 97.8 F Pulse Rate 103 H 102 H 102 H Respiratory Rate 20 18 18 Blood Pressure 135/68 119/56 L 113/56 L Pulse Oximetry 93 L 91 L 93 L 06/22/18 04:00 06/22/18 08:00 Temperature 98.4 F 97.8 F Pulse Rate 97 H 94 H Respiratory Rate 18 18 Blood Pressure 128/63 124/67 Pulse Oximetry 93 L 94 L Intake & Output 06/21/18 06/22/18 06/22/18 18:59 06:59 18:59 Intake Total 2450.5 / 2450.5 100 / 100 Balance 2450.5 / 2450.5 100 / 100 Weight 70.3 kg Intake: IV 2250.5 / 2250.5 100 / 100 SandoSTATIN Inj 500 MCG In NS 150.5 / 150.5 Inj 500 ML @ 50 MCG/HR 50.05 mls/hr IV.CONT .Q10H [facility] Rx#: [id number] Protonix Inj 80 MG In NS Inj 100 / 100 100 / 100 100 ML @ 10 mls/hr IV.CONT Q10H [facility] Rx#:[id number] NS Inj 1,000 ML @ 125 mls/hr IV 1999 .CONT .Q8H [facility] Rx#:[id number] Anesthesia Amount 200 / 200 Other: # Voids 4 2 <Oneal Hull R - 06/22/18 13:30> Vital Signs 06/20/18 12:30 06/20/18 13:30 06/20/18 15:08 Temperature 97.9 F Pulse Rate 97 H 90 84 Respiratory Rate 17 16 18 Blood Pressure 109/56 L 112/57 L 106/54 L Pulse Oximetry 98 97 95 06/20/18 15:23 06/20/18 16:00 06/20/18 16:39 Temperature 97.9 F 97.9 F 98.4 F Pulse Rate 84 85 79 Respiratory Rate 18 20 18 Blood Pressure 106/58 L 106/54 L 114/91 H Pulse Oximetry 95 98 98 06/20/18 17:11 06/20/18 19:40 06/20/18 19:46 Temperature 98.2 F 98.6 F 98.6 F Pulse Rate 90 98 H 95 H Respiratory Rate 18 14 20 Blood Pressure 107/55 L 102/52 L 102/52 L Pulse Oximetry 98 98 97 06/20/18 20:00 06/20/18 22:03 06/21/18 00:00 Temperature 98.6 F 98.6 F 97.5 F L Pulse Rate 95 H 88 97 H Respiratory Rate 20 14 20 Blood Pressure 102/52 L 120/58 L 121/63 Pulse Oximetry 97 93 L 96 06/21/18 04:00 06/21/18 08:00 Temperature 97.8 F 98.0 F Pulse Rate 97 H 100 H Respiratory Rate 20 18 Blood Pressure 112/57 L 113/60 Pulse Oximetry 93 L 94 L Intake & Output 06/20/18 06/21/18 06/21/18 18:59 06:59 18:59 Intake Total 1999 2750.5 / 2750.5 1150.5 / 1150.5 Balance 1999 2750.5 / 2750.5 1150.5 / 1150.5 Weight 64.183 kg 70.3 kg Intake: IV 1200 / 1200 1950.5 / 1950.5 1150.5 / 1150.5 SandoSTATIN Inj 500 MCG In NS 850.5 / 850.5 150.5 / 150.5 Inj 500 ML @ 50 MCG/HR 50.05 mls/hr IV.CONT .Q10H [facility] Rx#: [id number] Protonix Inj 80 MG In NS Inj 100 / 100 100 / 100 100 ML @ 10 mls/hr IV.CONT Q10H [facility] Rx#:[id number] NS Inj 1,000 ML @ 125 mls/hr IV 1000 / 1000 1000 / 1000 1000 / 1000 .CONT .Q8H [facility] Rx#:[id number] KCl 20 mEq Premix Inj 20 meq In 100 / 100 100 ml @ 50 mls/hr IV.SIG ONCE ONE Rx#:[id number] Intake (Blood Product) Amt 800 / 800 800 / 800 Rbc As-3 Leukoreduced Unit 400 / 400 [id number] Rbc As-3 Leukoreduced Unit 400 / 400 [id number] Rbc As-3 Leukoreduced Unit 0 / 0 400 / 400 [id number] Rbc As-3 Leukoreduced Unit 400 / 400 [id number] Other: # Voids 3 4 Weight On Admission 64.183 kg <River DysonDinorah Hancock - 06/21/18 12:19> Narrative: GENERAL: Pleasant elderly female sitting up in chair comfortably. SKIN: No rashes, ecchymoses or lesions. Cool and dry. Facial pallor has significantly improved. HEAD: Atraumatic. Normocephalic. EYES: Pupils equal round and reactive. Extraocular motions intact. No scleral icterus. No injection or drainage. ENT: Nose without bleeding, purulent drainage. NECK: Trachea midline. No lymphadenopathy. Supple, nontender. CARDIOVASCULAR: Regular rate and rhythm with systolic ejection murmur noted, 2/ 6 intensity. RESPIRATORY: Breath sounds equal bilaterally. Clear to auscultation. GASTROINTESTINAL: Abdomen soft, mildly tender in the right lower quadrant, without guarding. Positive bowel sounds, nondistended. No hepato-splenomegaly, or palpable masses. MUSCULOSKELETAL: Extremities without clubbing, cyanosis, or edema. No joint tenderness or effusion noted. No calf tenderness. NEUROLOGICAL: Awake and alert. Cranial nerves II through XII intact. Motor and sensory grossly within normal limits. Moves all extremities without difficulty. Normal speech. <River DysonLonnyalan Hancock - 06/21/18 12:19> Assessment and Plan - Assessment (1) Anemia Code(s): D64.9 - Anemia, unspecified Status: Acute (2) Acute GI bleeding Code(s): K92.2 - Gastrointestinal hemorrhage, unspecified Status: Acute (3) COPD (chronic obstructive pulmonary disease) Code(s): J44.9 - Chronic obstructive pulmonary disease, unspecified Status: Chronic (4) Diabetes Code(s): E11.9 - Type 2 diabetes mellitus without complications Status: Chronic (5) History of stroke Code(s): Z86.73 - Personal history of transient ischemic attack (TIA), and cerebral infarction without residual deficits Status: Chronic (6) Chronic constipation Code(s): K59.09 - Other constipation Status: Chronic (7) Acute hypokalemia Code(s): E87.6 - Hypokalemia Status: Acute (8) Hypocalcemia Code(s): E83.51 - Hypocalcemia Status: Acute (9) DVT prophylaxis Status: Acute (10) Nutrition, metabolism, and development symptoms Code(s): R63.8 - Other symptoms and signs concerning food and fluid intake Status: Acute <Oneal Hull - 06/22/18 13:30> (1) Anemia Code(s): D64.9 - Anemia, unspecified Status: Acute Plan: Patient admitted 06/20, found to be severely anemic upon presentation in the ED. Her hemoglobin was 4.1. MCV was microcytic at 54.5 demonstrating this is likely a chronic process. The patient's vitals have been stable. Patient has had dark stools and emesis for 7 weeks indicating probable GI etiology for her anemia. Patient is now status post 4 units of packed red blood cells and continues on Protonix and octreotide drip. Gastroenterology consulted, appreciate recs. Plan is for EGD this AM, and for colonoscopy if no source of bleeding is found on EGD. -Consult GI, appreciate recommendations -Iron level is 13 mcg/dl, TIBC 489 mcg/dl, percent iron sat 2.7%, ferritin 3 ng/ dl -Follow H&H until GI procedure, if source of bleeding confirm monitor as indicated -Continue Protonix and octreotide drip - Hemoccult stool not collected as patient has not had BM -Zofran 4 mg IV for nausea (2) Acute GI bleeding Code(s): K92.2 - Gastrointestinal hemorrhage, unspecified Status: Acute Plan: See plan for Anemia. (3) COPD (chronic obstructive pulmonary disease) Code(s): J44.9 - Chronic obstructive pulmonary disease, unspecified Status: Chronic Plan: Continue the patient's Spiriva and Symbicort. (4) Diabetes Code(s): E11.9 - Type 2 diabetes mellitus without complications Status: Chronic Plan: Hold home pioglitazone and Januvia. Low-dose sliding scale insulin. No hypoglycemic events reported (5) History of stroke Code(s): Z86.73 - Personal history of transient ischemic attack (TIA), and cerebral infarction without residual deficits Status: Chronic Plan: Patient has a history of CVA with no reportable neurological deficits. -Monitor closely (6) Chronic constipation Code(s): K59.09 - Other constipation Status: Chronic Plan: Patient is on Linzess at home. She reported that she had not had a bowel movement for almost 4 weeks prior to today. The patient has also experienced daily emesis which also can be a side effect of Linzess. While we are working up the patient's probable GI bleed and acute GI issues, will hold Linzess for now and discuss plan for this prior to discharge. (7) Acute hypokalemia Code(s): E87.6 - Hypokalemia Status: Acute Plan: Patient's potassium was 2.4 upon admission, improved to 3.4 on 06/21 after receiving 20 mEq IV potassium and 80 mEq p.o. potassium on 06/20. Hypokalemia is likely due to the chronic emesis. -vomiting subsided -follow BMP closely, replete as necessary (8) DVT prophylaxis Status: Acute Plan: Patient is actively bleeding as evidenced by Hgb on admission. Bilateral SCDs. (9) Nutrition, metabolism, and development symptoms Code(s): R63.8 - Other symptoms and signs concerning food and fluid intake Status: Acute Plan: Fluids: Defer fluids for now as patient is receiving 4 units packed red blood cells. Will initiate PO once GI procedure is completed. Electrolytes: Monitor replete as needed Nutrition: NPO for now, advance as tolerated post procedure <Dinorah Frederick - 06/21/18 12:02> - Assessment and Plan Discussed Condition With: Seen and discussed with Lindsey Alston, and Natalie <Dinorah Frederick - 06/21/18 12:19> Discharge Planning: Discharge expected today or tomorrow, pending GI procedure . If bleeding stabilized by findings on procedure, may be discharged as early as 06/21 Expect d/c to home <Dinorah Frederick - 06/21/18 12:19> - Attending Attestation This patient was seen and evaluated with the resident physician. I agree with the plan of care as discussed with me and documented in the resident note. Oneal Hull MD <Oneal Hull - 06/22/18 13:30> <Dinorah Frederick - Last Filed: 06/21/18 12:02> (1) Anemia Qualifiers: Anemia type: other cause Other causes of anemia: acute posthemorrhagic Qualified Code(s): D62 - Acute posthemorrhagic anemia (4) Diabetes Qualifiers: Diabetes mellitus type: type 2 <Oneal Hull R - Last Filed: 06/22/18 13:30> (1) Anemia Qualifiers: Anemia type: other cause Other causes of anemia: acute posthemorrhagic Qualified Code(s): D62 - Acute posthemorrhagic anemia (4) Diabetes Qualifiers: Diabetes mellitus type: type 2 <iDnorah Frederick L - Last Filed: 06/21/18 12:02> (1) Anemia Qualifiers: Anemia type: other cause Other causes of anemia: acute posthemorrhagic Qualified Code(s): D62 - Acute posthemorrhagic anemia (4) Diabetes Qualifiers: Diabetes mellitus type: type 2 <Oneal Hull - Last Filed: 06/22/18 13:30> (1) Anemia Qualifiers: Anemia type: other cause Other causes of anemia: acute posthemorrhagic Qualified Code(s): D62 - Acute posthemorrhagic anemia (4) Diabetes Qualifiers: Diabetes mellitus type: type 2
--- NOTE | 2018-06-21 12:31 | GIPROC ---
[facility] [address] [facility]. [facility], [address] EGD PROCEDURE REPORT EXAM DATE: 06/21/2018 PATIENT NAME: Avani Lucia MR #: [id number] BIRTHDATE: 1950 ATTENDING: Brandon Fink MD ORDER #: [id number] TABLET MACHINE OPERATOR: Miri Luo and Vida Gray STATUS: inpatient INDICATIONS: The patient is a 68 yr old female here for an EGD due to iron deficiency anemia and melena PROCEDURE PERFORMED: EGD w/ control of bleeding MEDICATIONS: Per Anesthesia and None. TOPICAL ANESTHETIC: none CONSENT: The patient understands the risks and benefits of the procedure and understands that these risks include, but are not limited to: sedation, allergic reaction, infection, perforation and/or bleeding. Alternative means of evaluation and treatment include, among others: physical exam, x-rays, and/or surgical intervention. The patient elects to proceed with this endoscopic procedure. medical equipment was checked for proper function. Hand hygiene and appropriate measures for infection prevention was taken. After the risks, benefits and alternatives of the procedure were thoroughly explained, Informed consent was verified, confirmed and timeout was successfully executed by the treatment team. The patient was anesthetized with topical anesthesia and the Pentax [id number] endoscope was introduced through the mouth and advanced to the second portion of the duodenum. Retroflexed views revealed no abnormalities The gastroscope was then slowly withdrawn and removed. ESOPHAGUS: There was LA Class A esophagitis noted. STOMACH: A small non-bleeding angioectasia was found in the gastric fundus. Argon plasma coagulation was applied to the site(s). With good treatment effect. DUODENUM: The duodenal mucosa appeared normal in the duodenal bulb. A small angiodysplastic lesion with no bleeding found in the 2nd part of the duodenum. Argon plasma coagulation was applied to the site(s). With good treatment effect. ADVERSE EVENTS: There were no complications. IMPRESSIONS: 1. There was LA Class A esophagitis noted 2. Non-bleeding angioectasia in the gastric fundus 3. Normal duodenal mucosa in the duodenal bulb 4. Small angiodysplastic lesion with no bleeding found in the 2nd part of the duodenum; Argon plasma coagulation was applied to the site(s); with good treatment effect 5. Retroflexed views revealed no abnormalities RECOMMENDATIONS: 1. Colonoscopy 2. Continue PPI 3. Monitor labs PATIENT CONDITION: stable DISPOSITION: Inpatient REPEAT EXAM: Return as needed for EGD Brandon Fink MD eSigned: Brandon Fink MD 06/21/2018 12:31 PM cc: PATIENT NAME: Avani Lucia MR#: [id number]
[2018-06-22] MEDS: Sod Chloride 0.9% Inj 1,000 ML IV.CONT SCH ×3 (00:34→18:19)
[2018-06-22] MEDS: Octreotide Inj 500 MCG in Sodium Chlor 0.9% Inj 500 ML IV.CONT SCH (00:35)
[2018-06-22] MEDS: Insulin NovoLOG Aspart Correctional Sugar Inj SQ SCH ×5 (03:33→23:35)
[2018-06-22] MEDS: Levothyroxine 50 MCG Tablet PO SCH (05:07)
[2018-06-22 07:30] LABS: Baso % (Auto) 0.3 % (0.0-2.0); Eos # (Auto) 0.1 th/mm3 (0.0-0.4); Eos % (Auto) 0.9 % (0.0-4.0); Hematocrit 29.5 % (35.0-46.0); Hemoglobin 9.1 gm/dL (11.6-15.3); Lymph # (Auto) 0.9 th/mm3 (1.0-4.8); Lymph % (Auto) 8.1 % (9.0-44.0); Mean Corpuscular Hemoglobin 22.2 pg (27.0-34.0); Mean Corpuscular Volume 71.5 fL (80.0-100.0); Mean Platelet Volume 8.7 fL (7.0-11.0); Mono # (Auto) 0.6 th/mm3 (0.0-0.9); Mono % (Auto) 5.5 % (0.0-8.0); Neut # (Auto) 9.8 th/mm3 (1.8-7.7); Neut % (Auto) 85.2 % (16.0-70.0); Platelet Count 275 th/mm3 (150-450); Red Blood Count 4.12 mil/mm3 (4.00-5.30); Red Cell Distribution Width 33.8 % (11.6-17.2); White Blood Count 11.4 th/mm3 (4.0-11.0)
[2018-06-22 08:02] LABS: Anion Gap 9 meq/L (5-15); Blood Urea Nitrogen 5 mg/dL (7-18); Calcium 6.9 mg/dL (8.5-10.1); Chloride 107 meq/L (98-107); Glomerular Filtration Rate Greater Than 89 mL/min (>89); Glucose,Random 117 mg/dL (74-106); Sodium 141 meq/L (136-145)
[2018-06-22 08:26] LABS: Calcium-Albumin Corrected 7.7 mg/dL (8.5-10.1)
[2018-06-22 08:37] LABS: Lymphocytes 5 % (9-44); Myelocytes 2 % (0-0); Tallied Nucleated RBC 1 (0-0)
[2018-06-22 08:39] LABS: Dimorphic RBC Present; Platelet Estimate Normal (Normal); Platelet Morphology Normal (Normal)
[2018-06-22 08:40] LABS: Spherocytes Occ
--- NOTE | 2018-06-22 09:52 | P.PNFP ---
Subjective Interval history: Patient seen and examined at bedside this morning. Patient reports that she has been n.p.o. since midnight for her colonoscopy this morning. She is thirsty and would like ice chips. She did not do any bowel prep for the colonoscopy. I will contact the GI team to clarify the procedure schedule. Patient denies any chest pain, acutely worsening shortness of breath , abdominal pain, lower extremity swelling. <Natalie StacyCary A - 06/22/18 10:31> Results - Labs Result diagrams: 06/22/18 06:49 06/22/18 06:49 <Oneal Hull - 06/22/18 13:37> Abnormal lab results 06/21/18 06/21/18 06/22/18 Range/Units 16:54 20:39 06:49 WBC 11.4 H (4.0-11.0) th/mm3 Hgb 9.1 L (11.6-15.3) gm/dL Hct 29.5 L (35.0-46.0) % MCV 71.5 L (80.0-100.0) fL MCH 22.2 L (27.0-34.0) pg MCHC 31.0 L (32.0-36.0) % RDW 33.8 H (11.6-17.2) % Neut % (Auto) 85.2 H (16.0-70.0) % Lymph % (Auto) 8.1 L (9.0-44.0) % Neut # (Auto) 9.8 H (1.8-7.7) th/mm3 Lymph # (Auto) 0.9 L (1.0-4.8) th/mm3 Seg Neuts % (Manual) 93 H (16-70) % Lymphocytes % (Manual) 5 L (9-44) % Myelocytes % (Man) 2 H (0-0) % Abs Neuts (Manual) 10.8 H (1.8-7.7) th/mm3 Nucleated RBCs/100 WBC 1 H (0-0) /100 WBC Dimorphic RBCs Present H (None) Spherocytes Occ H (None) Keratocytes Occ H (None) Potassium (3.5-5.1) meq/L BUN (7-18) mg/dL POC Glucose 143 H 139 H (68-110) mg/dl Random Glucose (74-106) mg/dL Calcium (8.5-10.1) mg/dL Calcium Adj for Albumin (8.5-10.1) mg/dL Albumin (3.4-5.0) g/dL 06/22/18 06/22/18 Range/Units 06:49 09:55 WBC (4.0-11.0) th/mm3 Hgb (11.6-15.3) gm/dL Hct (35.0-46.0) % MCV (80.0-100.0) fL MCH (27.0-34.0) pg MCHC (32.0-36.0) % RDW (11.6-17.2) % Neut % (Auto) (16.0-70.0) % Lymph % (Auto) (9.0-44.0) % Neut # (Auto) (1.8-7.7) th/mm3 Lymph # (Auto) (1.0-4.8) th/mm3 Seg Neuts % (Manual) (16-70) % Lymphocytes % (Manual) (9-44) % Myelocytes % (Man) (0-0) % Abs Neuts (Manual) (1.8-7.7) th/mm3 Nucleated RBCs/100 WBC (0-0) /100 WBC Dimorphic RBCs (None) Spherocytes (None) Keratocytes (None) Potassium 3.0 L (3.5-5.1) meq/L BUN 5 L (7-18) mg/dL POC Glucose 117 H (68-110) mg/dl Random Glucose 117 H (74-106) mg/dL Calcium 6.9 L* (8.5-10.1) mg/dL Calcium Adj for Albumin 7.7 L (8.5-10.1) mg/dL Albumin 3.0 L (3.4-5.0) g/dL Short CBC 06/22/18 Range/Units 06:49 WBC 11.4 H (4.0-11.0) th/mm3 Hgb 9.1 L (11.6-15.3) gm/dL Hct 29.5 L (35.0-46.0) % Plt Count 275 (150-450) th/mm3 BMP 06/22/18 06:49 Sodium 141 Potassium 3.0 L Chloride 107 Carbon Dioxide 25.0 BUN 5 L Creatinine 0.64 Calcium 6.9 L* Liver Function 06/22/18 Range/Units 06:49 Albumin 3.0 L (3.4-5.0) g/dL <Oneal Hull R - 06/22/18 13:37> Abnormal lab results 06/21/18 06/21/18 06/21/18 Range/Units 11:01 11:01 13:19 WBC (4.0-11.0) th/mm3 Hgb 10.0 L (11.6-15.3) gm/dL Hct 31.3 L (35.0-46.0) % MCV 71.1 L D (80.0-100.0) fL MCH 22.7 L (27.0-34.0) pg MCHC (32.0-36.0) % RDW 33.1 H D (11.6-17.2) % Neut % (Auto) 83.7 H (16.0-70.0) % Lymph % (Auto) (9.0-44.0) % Neut # (Auto) 9.1 H (1.8-7.7) th/mm3 Lymph # (Auto) (1.0-4.8) th/mm3 Seg Neuts % (Manual) 90 H (16-70) % Lymphocytes % (Manual) 6 L (9-44) % Myelocytes % (Man) (0-0) % Abs Neuts (Manual) 10.0 H (1.8-7.7) th/mm3 Nucleated RBCs/100 WBC 7 H (0-0) /100 WBC Dimorphic RBCs (None) Spherocytes (None) Keratocytes (None) Potassium (3.5-5.1) meq/L Chloride 110 H (98-107) meq/L BUN 5 L (7-18) mg/dL Estimated GFR 76 L (>89) mL/min POC Glucose 133 H (68-110) mg/dl Random Glucose 121 H (74-106) mg/dL Calcium 6.8 L* D (8.5-10.1) mg/dL Calcium Adj for Albumin 7.5 L (8.5-10.1) mg/dL Total Bilirubin 1.6 H (0.2-1.0) mg/dL AST 60 H (15-37) U/L Albumin 3.1 L (3.4-5.0) g/dL 06/21/18 06/21/18 06/22/18 Range/Units 16:54 20:39 06:49 WBC 11.4 H (4.0-11.0) th/mm3 Hgb 9.1 L (11.6-15.3) gm/dL Hct 29.5 L (35.0-46.0) % MCV 71.5 L (80.0-100.0) fL MCH 22.2 L (27.0-34.0) pg MCHC 31.0 L (32.0-36.0) % RDW 33.8 H (11.6-17.2) % Neut % (Auto) 85.2 H (16.0-70.0) % Lymph % (Auto) 8.1 L (9.0-44.0) % Neut # (Auto) 9.8 H (1.8-7.7) th/mm3 Lymph # (Auto) 0.9 L (1.0-4.8) th/mm3 Seg Neuts % (Manual) 93 H (16-70) % Lymphocytes % (Manual) 5 L (9-44) % Myelocytes % (Man) 2 H (0-0) % Abs Neuts (Manual) 10.8 H (1.8-7.7) th/mm3 Nucleated RBCs/100 WBC 1 H (0-0) /100 WBC Dimorphic RBCs Present H (None) Spherocytes Occ H (None) Keratocytes Occ H (None) Potassium (3.5-5.1) meq/L Chloride (98-107) meq/L BUN (7-18) mg/dL Estimated GFR (>89) mL/min POC Glucose 143 H 139 H (68-110) mg/dl Random Glucose (74-106) mg/dL Calcium (8.5-10.1) mg/dL Calcium Adj for Albumin (8.5-10.1) mg/dL Total Bilirubin (0.2-1.0) mg/dL AST (15-37) U/L Albumin (3.4-5.0) g/dL 06/22/18 Range/Units 06:49 WBC (4.0-11.0) th/mm3 Hgb (11.6-15.3) gm/dL Hct (35.0-46.0) % MCV (80.0-100.0) fL MCH (27.0-34.0) pg MCHC (32.0-36.0) % RDW (11.6-17.2) % Neut % (Auto) (16.0-70.0) % Lymph % (Auto) (9.0-44.0) % Neut # (Auto) (1.8-7.7) th/mm3 Lymph # (Auto) (1.0-4.8) th/mm3 Seg Neuts % (Manual) (16-70) % Lymphocytes % (Manual) (9-44) % Myelocytes % (Man) (0-0) % Abs Neuts (Manual) (1.8-7.7) th/mm3 Nucleated RBCs/100 WBC (0-0) /100 WBC Dimorphic RBCs (None) Spherocytes (None) Keratocytes (None) Potassium 3.0 L (3.5-5.1) meq/L Chloride (98-107) meq/L BUN 5 L (7-18) mg/dL Estimated GFR (>89) mL/min POC Glucose (68-110) mg/dl Random Glucose 117 H (74-106) mg/dL Calcium 6.9 L* (8.5-10.1) mg/dL Calcium Adj for Albumin 7.7 L (8.5-10.1) mg/dL Total Bilirubin (0.2-1.0) mg/dL AST (15-37) U/L Albumin 3.0 L (3.4-5.0) g/dL Short CBC 06/21/18 06/22/18 Range/Units 11:01 06:49 WBC 10.9 11.4 H (4.0-11.0) th/mm3 Hgb 10.0 L 9.1 L (11.6-15.3) gm/dL Hct 31.3 L 29.5 L (35.0-46.0) % Plt Count 305 275 (150-450) th/mm3 BMP 06/21/18 06/22/18 11:01 06:49 Sodium 143 141 Potassium 3.6 3.0 L Chloride 110 H 107 Carbon Dioxide 27.0 25.0 BUN 5 L 5 L Creatinine 0.76 0.64 Calcium 6.8 L* D 6.9 L* Liver Function 06/21/18 06/22/18 Range/Units 11:01 06:49 Total Bilirubin 1.6 H (0.2-1.0) mg/dL AST 60 H (15-37) U/L ALT 33 (10-53) U/L Alkaline Phosphatase 80 (45-117) U/L Albumin 3.1 L 3.0 L (3.4-5.0) g/dL <Cary Castro A - 06/22/18 09:52> Physical Exam Vital signs: Vital Signs 06/21/18 16:00 06/21/18 20:00 06/22/18 00:00 Temperature 97.9 F 97.8 F 97.8 F Pulse Rate 103 H 102 H 102 H Respiratory Rate 20 18 18 Blood Pressure 135/68 119/56 L 113/56 L Pulse Oximetry 93 L 91 L 93 L 06/22/18 04:00 06/22/18 08:00 06/22/18 12:00 Temperature 98.4 F 97.8 F 98.2 F Pulse Rate 97 H 94 H 99 H Respiratory Rate 18 18 18 Blood Pressure 128/63 124/67 140/68 Pulse Oximetry 93 L 94 L 99 Intake & Output 06/21/18 06/22/18 06/22/18 18:59 06:59 18:59 Intake Total 2450.5 / 2450.5 100 / 100 Balance 2450.5 / 2450.5 100 / 100 Weight 70.3 kg Intake: IV 2250.5 / 2250.5 100 / 100 SandoSTATIN Inj 500 MCG In NS 150.5 / 150.5 Inj 500 ML @ 50 MCG/HR 50.05 mls/hr IV.CONT .Q10H [facility] Rx#: [id number] Protonix Inj 80 MG In NS Inj 100 / 100 100 / 100 100 ML @ 10 mls/hr IV.CONT Q10H [facility] Rx#:[id number] NS Inj 1,000 ML @ 125 mls/hr IV 1999 / 1999 .CONT .Q8H [facility] Rx#:[id number] Anesthesia Amount 200 / 200 Other: # Voids 4 2 <Oneal Hull R - 06/22/18 13:37> Vital Signs 06/21/18 12:00 06/21/18 12:32 06/21/18 16:00 Temperature 97.7 F 98.1 F 97.9 F Pulse Rate 101 H 99 H 103 H Respiratory Rate 18 18 20 Blood Pressure 149/72 H 127/60 135/68 Pulse Oximetry 94 L 94 L 93 L 06/21/18 20:00 06/22/18 00:00 06/22/18 04:00 Temperature 97.8 F 97.8 F 98.4 F Pulse Rate 102 H 102 H 97 H Respiratory Rate 18 18 18 Blood Pressure 119/56 L 113/56 L 128/63 Pulse Oximetry 91 L 93 L 93 L 06/22/18 08:00 Temperature 97.8 F Pulse Rate 94 H Respiratory Rate 18 Blood Pressure 124/67 Pulse Oximetry 94 L Intake & Output 06/21/18 06/22/18 06/22/18 18:59 06:59 18:59 Intake Total 2450.5 / 2450.5 Balance 2450.5 / 2450.5 Weight 70.3 kg Intake: IV 2250.5 / 2250.5 SandoSTATIN Inj 500 MCG In NS 150.5 / 150.5 Inj 500 ML @ 50 MCG/HR 50.05 mls/hr IV.CONT .Q10H [facility] Rx#: [id number] Protonix Inj 80 MG In NS Inj 100 / 100 100 ML @ 10 mls/hr IV.CONT Q10H [facility] Rx#:[id number] NS Inj 1,000 ML @ 125 mls/hr IV 1999 / 1999 .CONT .Q8H [facility] Rx#:[id number] Anesthesia Amount 200 / 200 Other: # Voids 4 2 <Cary Castro - 06/22/18 09:52> Narrative: GENERAL: Pleasant elderly female sitting up in chair comfortably. SKIN: No rashes, ecchymoses or lesions. Cool and dry. No facial pallor. HEAD: Atraumatic. Normocephalic. EYES: Pupils equal round and reactive. Extraocular motions intact. No scleral icterus. No injection or drainage. ENT: Nose without bleeding, purulent drainage. CARDIOVASCULAR: Regular rate and rhythm. RESPIRATORY: Breath sounds equal bilaterally. Clear to auscultation. GASTROINTESTINAL: Abdomen soft, without guarding. Positive bowel sounds. MUSCULOSKELETAL: Extremities without clubbing, cyanosis, or edema. No joint tenderness or effusion noted. No calf tenderness. NEUROLOGICAL: Awake and alert. Cranial nerves II through XII intact. Motor and sensory grossly within normal limits. Moves all extremities without difficulty. Normal speech. <Cary Castro - 06/22/18 10:31> Assessment and Plan - Assessment (1) Anemia Code(s): D64.9 - Anemia, unspecified Status: Acute (2) Acute GI bleeding Code(s): K92.2 - Gastrointestinal hemorrhage, unspecified Status: Acute (3) COPD (chronic obstructive pulmonary disease) Code(s): J44.9 - Chronic obstructive pulmonary disease, unspecified Status: Chronic (4) Diabetes Code(s): E11.9 - Type 2 diabetes mellitus without complications Status: Chronic (5) History of stroke Code(s): Z86.73 - Personal history of transient ischemic attack (TIA), and cerebral infarction without residual deficits Status: Chronic (6) Chronic constipation Code(s): K59.09 - Other constipation Status: Chronic (7) Acute hypokalemia Code(s): E87.6 - Hypokalemia Status: Acute (8) Hypocalcemia Code(s): E83.51 - Hypocalcemia Status: Acute (9) DVT prophylaxis Status: Acute (10) Nutrition, metabolism, and development symptoms Code(s): R63.8 - Other symptoms and signs concerning food and fluid intake Status: Acute <Oneal Hull - 06/22/18 13:37> (1) Anemia Code(s): D64.9 - Anemia, unspecified Status: Acute Plan: Patient admitted 06/20, found to be severely anemic upon presentation in the ED. Her hemoglobin was 4.1. MCV was microcytic at 54.5 demonstrating this is likely a chronic process. The patient's vitals have been stable. Patient has had dark stools and emesis for 7 weeks indicating probable GI etiology for her anemia. Patient is now status post 4 units of packed red blood cells and continues on Protonix drip. Gastroenterology consulted, appreciate recs. Patient had EGD completed with no source of bleeding and identified, so colonoscopy was recommended. I spoke with the GI nurse practitioner who reports that the patient will likely be going for colonoscopy tomorrow. They will evaluate her this afternoon. -Consult GI, appreciate recommendations -Iron level is 13 mcg/dl, TIBC 489 mcg/dl, percent iron sat 2.7%, ferritin 3 ng/ dl -Follow H&H every 12 hours until GI procedure, if source of bleeding confirm monitor as indicated -Discontinue octreotide drip -Continue Protonix drip -Hemoccult stool not collected as patient has not had BM -Zofran 4 mg IV for nausea (2) Acute GI bleeding Code(s): K92.2 - Gastrointestinal hemorrhage, unspecified Status: Acute Plan: See plan for Anemia. (3) COPD (chronic obstructive pulmonary disease) Code(s): J44.9 - Chronic obstructive pulmonary disease, unspecified Status: Chronic Plan: Continue the patient's Spiriva and Symbicort. (4) Diabetes Code(s): E11.9 - Type 2 diabetes mellitus without complications Status: Chronic Plan: Hold home pioglitazone and Januvia. Low-dose sliding scale insulin-patient has required no sliding scale insulin. No hypoglycemic events reported (5) History of stroke Code(s): Z86.73 - Personal history of transient ischemic attack (TIA), and cerebral infarction without residual deficits Status: Chronic Plan: Patient has a history of CVA with no reportable neurological deficits. -Monitor closely (6) Chronic constipation Code(s): K59.09 - Other constipation Status: Chronic Plan: Patient is on Linzess at home. She reported that she had not had a bowel movement for almost 4 weeks prior to today. The patient has also experienced daily emesis which also can be a side effect of Linzess. While we are working up the patient's probable GI bleed and acute GI issues, will hold Linzess for now and discuss plan for this prior to discharge. (7) Acute hypokalemia Code(s): E87.6 - Hypokalemia Status: Acute Plan: Patient's potassium 3.0 this morning. Will add 30 mEq potassium p.o. daily. Patient's potassium was 2.4 upon admission, improved to 3.4 on 06/21 after receiving 20 mEq IV potassium and 80 mEq p.o. potassium on 06/20. Hypokalemia is likely due to the chronic emesis. -vomiting subsided -follow BMP closely, replete as necessary (8) Hypocalcemia Code(s): E83.51 - Hypocalcemia Status: Acute Plan: Patient is mildly hypocalcemic with a calcium 7.7 when adjusted for albumin. -500 mg calcium carbonate chew ONCE. -We will continue to monitor (9) DVT prophylaxis Status: Acute Plan: Patient is actively bleeding as evidenced by Hgb on admission. Bilateral SCDs. (10) Nutrition, metabolism, and development symptoms Code(s): R63.8 - Other symptoms and signs concerning food and fluid intake Status: Acute Plan: Fluids: Patient tolerating clear liquids. Electrolytes: Monitor replete as needed Nutrition: Clear liquids per GI, advance as tolerated post procedure <Cary Castro - 06/22/18 10:17> - Attending Attestation This patient was seen and evaluated with the resident physician. I agree with the plan of care as discussed with me and documented in the resident note. Oneal Hull MD <Oneal Hull - 06/22/18 13:37> <Cary Castro - Last Filed: 06/22/18 10:17> (1) Anemia Qualifiers: Anemia type: other cause Other causes of anemia: acute posthemorrhagic Qualified Code(s): D62 - Acute posthemorrhagic anemia (4) Diabetes Qualifiers: Diabetes mellitus type: type 2 <Oneal Hull - Last Filed: 06/22/18 13:37> (1) Anemia Qualifiers: Anemia type: other cause Other causes of anemia: acute posthemorrhagic Qualified Code(s): D62 - Acute posthemorrhagic anemia (4) Diabetes Qualifiers: Diabetes mellitus type: type 2 <Cary Castro A - Last Filed: 06/22/18 10:17> (1) Anemia Qualifiers: Anemia type: other cause Other causes of anemia: acute posthemorrhagic Qualified Code(s): D62 - Acute posthemorrhagic anemia (4) Diabetes Qualifiers: Diabetes mellitus type: type 2 <Oneal Hull R - Last Filed: 06/22/18 13:37> (1) Anemia Qualifiers: Anemia type: other cause Other causes of anemia: acute posthemorrhagic Qualified Code(s): D62 - Acute posthemorrhagic anemia (4) Diabetes Qualifiers: Diabetes mellitus type: type 2
[2018-06-22] MEDS: Budesonide-Formoterol 160/4.5 MCG 6 GM Inhaler INH SCH ×2 (09:53→23:30)
[2018-06-22] MEDS: Pantoprazole Inj 80 MG in Sodium Chlor 0.9% Inj 100 ML IV.CONT SCH ×2 (09:53→23:35)
[2018-06-22] MEDS: Tiotropium Bromide 18 MCG/ACT Inhaler INH SCH (09:53)
--- NOTE | 2018-06-22 13:44 | P.DIET ---
Nutritional Evaluation Type of nutrition evaluation: initial Nutrition screening: Weight Loss > 10 lbs Objective - Diagnosis GI Bleed, Anemia, Hyperkalemia - Objective % IBW: 124 (IBW = 125#) Body Weight Used for Calculations: Actual (70.3 kg) Energy Needs - Lower Range (kCal/kg): 25 Energy Needs - Upper Range (kCal/kg): 30 Lower Limit kCal/kg (kCals): 1,758 Upper Limit kCal/kg (kCals): 2,109 Lower Limit Protein Factor (Grams per Kg): 1.0 Upper Limit Protein Factor (Grams per Kg): 1.5 Lower Protein Needs (Protein): 70 Upper Protein Needs (Protein): 105 Dietitian Reviewed in Medical Record: Current diet, Curent medications, Intake & Output, Labs, Medical history Diet Order: Clear Liquids Objective Comments: Meds include Synthroid / panendoscopy Assessment Assessment: Pt is at high nutrition risk 2' to dx and unintentional weight loss. Colonoscopy is planned for tomorrow. RD will monitor diet advance post-procedure , po intake and assess for the need of supplements. When diet is advanced, recommend 1800 ADA. Recommendations: RD following Dietitian to Monitor: Lab values, Intake & Output, Weight change, PO Intake, Diet advancement, Medical course
--- NOTE | 2018-06-22 14:52 | P.PNGI ---
Subjective Interval history: Patient awake and alert Denies any obvious bleeding Denies abdominal pain States tolerating clear liquid diet without nausea or vomiting Post EGD Physical Exam Vital signs: Vital Signs 06/21/18 16:00 06/21/18 20:00 06/22/18 00:00 Temperature 97.9 F 97.8 F 97.8 F Pulse Rate 103 H 102 H 102 H Respiratory Rate 20 18 18 Blood Pressure 135/68 119/56 L 113/56 L Pulse Oximetry 93 L 91 L 93 L 06/22/18 04:00 06/22/18 08:00 06/22/18 12:00 Temperature 98.4 F 97.8 F 98.2 F Pulse Rate 97 H 94 H 99 H Respiratory Rate 18 18 18 Blood Pressure 128/63 124/67 140/68 Pulse Oximetry 93 L 94 L 99 Intake & Output 06/21/18 06/22/18 06/22/18 18:59 06:59 18:59 Intake Total 2450.5 / 2450.5 100 / 100 Balance 2450.5 / 2450.5 100 / 100 Weight 70.3 kg Intake: IV 2250.5 / 2250.5 100 / 100 SandoSTATIN Inj 500 MCG In NS 150.5 / 150.5 Inj 500 ML @ 50 MCG/HR 50.05 mls/hr IV.CONT .Q10H [facility] Rx#: [id number] Protonix Inj 80 MG In NS Inj 100 / 100 100 / 100 100 ML @ 10 mls/hr IV.CONT Q10H [facility] Rx#:[id number] NS Inj 1,000 ML @ 125 mls/hr IV 1999 / 1999 .CONT .Q8H [facility] Rx#:[id number] Anesthesia Amount 200 / 200 Other: # Voids 4 2 - Constitutional no acute distress, cooperative - Routine HEENT Exam Head: Present: normocephalic ENT: Present: mucous membranes moist - Routine Respiratory Exam Present: CTA bilaterally, wheezes. Absent: accessory muscle use Comments: Fine scattered wheezes - Routine Cardiovascular Exam Present: RRR - Routine Abdominal Exam Present: soft, normoactive bowel sounds. Absent: tenderness, distended - Routine Extremities Exam Absent: edema - Routine Skin Exam Present: dry, warm - Routine Neurological Exam Present: alert, oriented X3 Results - Labs CBC & Chem 7: 06/22/18 06:49 06/22/18 06:49 Laboratory Results - last 24 hr 06/21/18 06/21/18 06/22/18 16:54 20:39 06:49 WBC 11.4 H RBC 4.12 Hgb 9.1 L Hct 29.5 L MCV 71.5 L MCH 22.2 L MCHC 31.0 L RDW 33.8 H Plt Count 275 MPV 8.7 Prelim Diff (Auto) Slide review pending Neut % (Auto) 85.2 H Lymph % (Auto) 8.1 L [place] % (Auto) 5.5 Eos % (Auto) 0.9 Baso % (Auto) 0.3 Neut # (Auto) 9.8 H Lymph # (Auto) 0.9 L [place] # (Auto) 0.6 Eos # (Auto) 0.1 Baso # (Auto) 0.0 WBC Differential Manual diff final Seg Neuts % (Manual) 93 H Lymphocytes % (Manual) 5 L Myelocytes % (Man) 2 H Abs Neuts (Manual) 10.8 H Nucleated RBCs/100 WBC 1 H Differential Comment . Platelet Estimate Normal Platelet Morphology Normal Dimorphic RBCs Present H Spherocytes Occ H Keratocytes Occ H Sodium Potassium Chloride Carbon Dioxide Anion Gap BUN Creatinine Estimated GFR POC Glucose 143 H 139 H Random Glucose Calcium Calcium Adj for Albumin Albumin 06/22/18 06/22/18 06/22/18 06:49 09:55 12:53 WBC RBC Hgb Hct MCV MCH MCHC RDW Plt Count MPV Prelim Diff (Auto) Neut % (Auto) Lymph % (Auto) [place] % (Auto) Eos % (Auto) Baso % (Auto) Neut # (Auto) Lymph # (Auto) [place] # (Auto) Eos # (Auto) Baso # (Auto) WBC Differential Seg Neuts % (Manual) Lymphocytes % (Manual) Myelocytes % (Man) Abs Neuts (Manual) Nucleated RBCs/100 WBC Differential Comment Platelet Estimate Platelet Morphology Dimorphic RBCs Spherocytes Keratocytes Sodium 141 Potassium 3.0 L Chloride 107 Carbon Dioxide 25.0 Anion Gap 9 BUN 5 L Creatinine 0.64 Estimated GFR Greater than 89 POC Glucose 117 H 110 Random Glucose 117 H Calcium 6.9 L* Calcium Adj for Albumin 7.7 L Albumin 3.0 L Assessment and Plan (1) Acute GI bleeding Status: Acute Code(s): K92.2 - Gastrointestinal hemorrhage, unspecified - Plan Patient is a pleasant 68-year-old female with past medical history significant for COPD, diabetes, hypothyroidism and gastric esophageal reflux disease. Surgical history significant for hysterectomy, appendectomy and finger amputation. Patient presented to [facility] this a.m. with report of 7-8-week onset of increasing shortness of breath with dark colored emesis. Patient states that she was instructed to come to the hospital by her PCP for abnormal labs, hemoglobin 4.1. Patient endorses intermittent sharp right lower quadrant abdominal pain. Reports appetite has been poor for the last 8 weeks . Denies diarrhea or constipation. Denies hematochezia or hematemesis. Patient states that she has had very dark brown stools with 1-2 episodes of stools notably black. Patient states last colonoscopy was done 7 years ago along with upper endoscopy with unremarkable results. Patient states procedures were done by Dr. Brunson in [facility]. Patient endorses that she was not encouraged to repeat exams in 10 years. Patient denies use of NSAIDs except aspirin 81 mg p.o. daily. Denies use of prescription blood thinners. Patient denies use of alcohol products and states she stopped the use of tobacco products 1 year ago. Patient endorses occasional heartburn for which she feels Nexium is effective. Our service has been consulted to evaluate patient for GI bleeding. GI bleed Patient endorses 7-8-week history of increasing shortness of breath with dark colored emesis and 1-2 episodes of black stools. Denies use of NSAIDs with the exception of aspirin 81 mg p.o. daily. Reports history of GERD for which she uses Nexium daily. Admitted to [facility] with hemoglobin 4.1. 06/22/2018 GI bleed No reported bleeding Denies nausea or vomiting, no abdominal pain 06/21/2018 EGD revealed the following :1. There was LA Class A esophagitis noted 2. Non-bleeding angiectasia in the gastric fundus 3. Normal duodenal mucosa in the duodenal bulb 4. Small angiodysplastic lesion with no bleeding found in the 2nd part of the duodenum; Argon plasma coagulation was applied to the site(s); with good treatment effect 5. Retroflexed views revealed no abnormalities WBC 11.4 hemoglobin 9.1 hematocrit 29.5 platelet count 275 INR 1.1 Plan Clear liquid diet N.p.o. after midnight Obtain consent for colonoscopy PPI GoLYTELY prep Monitor for active bleeding Monitor hemoglobin hematocrit Transfuse as needed Supportive care Further recommendations to follow This patient has been seen by myself and Dr. Fink and this note is written on his behalf - Attending Attestation Dr. Fink
[2018-06-22] MEDS ORDERED: PEG 3350/E-Lyte Soln 4000 ML Bottle PO ONE (16:00)
[2018-06-22 19:29] LABS: Hematocrit 27.7 % (35.0-46.0); Hemoglobin 9.2 gm/dL (11.6-15.3)
[2018-06-23] MEDS: Insulin NovoLOG Aspart Correctional Sugar Inj SQ SCH ×5 (03:35→23:27)
[2018-06-23] MEDS: Sod Chloride 0.9% Inj 1,000 ML IV.CONT SCH ×3 (03:35→17:51)
[2018-06-23] MEDS: Levothyroxine 50 MCG Tablet PO SCH (05:09)
[2018-06-23 07:02] LABS: Baso % (Auto) 0.3 % (0.0-2.0); Eos # (Auto) 0.1 th/mm3 (0.0-0.4); Eos % (Auto) 1.3 % (0.0-4.0); Hematocrit 29.6 % (35.0-46.0); Hemoglobin 9.2 gm/dL (11.6-15.3); Lymph % (Auto) 10.2 % (9.0-44.0); Mean Corpuscular HGB Conc 31.2 % (32.0-36.0); Mean Corpuscular Hemoglobin 22.4 pg (27.0-34.0); Mean Corpuscular Volume 71.6 fL (80.0-100.0); Mean Platelet Volume 8.6 fL (7.0-11.0); Mono # (Auto) 0.6 th/mm3 (0.0-0.9); Mono % (Auto) 5.9 % (0.0-8.0); Neut # (Auto) 7.7 th/mm3 (1.8-7.7); Neut % (Auto) 82.3 % (16.0-70.0); Platelet Count 256 th/mm3 (150-450); Red Blood Count 4.13 mil/mm3 (4.00-5.30); Red Cell Distribution Width 35.3 % (11.6-17.2); White Blood Count 9.4 th/mm3 (4.0-11.0)
[2018-06-23 07:36] LABS: Anion Gap 7 meq/L (5-15); Blood Urea Nitrogen 2 mg/dL (7-18); Calcium 7.1 mg/dL (8.5-10.1); Carbon Dioxide 28.7 meq/L (21.0-32.0); Chloride 105 meq/L (98-107); Glomerular Filtration Rate Greater Than 89 mL/min (>89); Glucose,Random 102 mg/dL (74-106); Sodium 141 meq/L (136-145)
[2018-06-23] MEDS: Pantoprazole Inj 80 MG in Sodium Chlor 0.9% Inj 100 ML IV.CONT SCH ×4 (07:39→23:28)
[2018-06-23 07:53] LABS: Potassium 2.9 meq/L (3.5-5.1)
[2018-06-23 08:00] LABS: Albumin 2.8 g/dL (3.4-5.0); Calcium-Albumin Corrected 8.1 mg/dL (8.5-10.1)
[2018-06-23] MEDS ORDERED: Chlorhexidine Gluconate 2% 1 Pack (2 Cloths) TOPICAL ONE (08:09)
[2018-06-23 08:24] LABS: Dimorphic RBC Present; Platelet Estimate Normal (Normal); Platelet Morphology Normal (Normal)
[2018-06-23] MEDS: Metoprolol Tartrate 25 MG Tablet PO ONE ×2 (08:31→08:52)
[2018-06-23] MEDS: Budesonide-Formoterol 160/4.5 MCG 6 GM Inhaler INH SCH ×2 (08:31→23:24)
[2018-06-23] MEDS: Tiotropium Bromide 18 MCG/ACT Inhaler INH SCH (08:31)
[2018-06-23] MEDS ORDERED: Sodium Chlor 0.9% Inj 500 ML IV.SIG SCH (09:00)
--- NOTE | 2018-06-23 11:28 | P.PNFP ---
Subjective Interval history: Patient was seen and evaluated this morning. Patient reports feeling well but is obviously frustrated. Patient was told she would have colonoscopy this morning but was unsure whether she was still on the schedule because of her " low potassium." Nurse unsure of GI plan for today. Patient denies chest pain, shortness of breath, nausea, vomiting. She completed bowel prep yesterday; she reports watery bowel movements. All questions were answered. <Shelley Cho - 06/23/18 11:27> Results - Labs Result diagrams: 06/23/18 06:30 06/23/18 06:30 <Lucia Esposito - 06/23/18 16:06> Abnormal lab results 06/22/18 06/23/18 06/23/18 Range/Units 19:03 06:30 06:30 Hgb 9.2 L 9.2 L (11.6-15.3) gm/dL Hct 27.7 L 29.6 L (35.0-46.0) % MCV 71.6 L (80.0-100.0) fL MCH 22.4 L (27.0-34.0) pg MCHC 31.2 L (32.0-36.0) % RDW 35.3 H (11.6-17.2) % Neut % (Auto) 82.3 H (16.0-70.0) % Dimorphic RBCs Present H (None) Potassium 2.9 L* (3.5-5.1) meq/L BUN 2 L (7-18) mg/dL POC Glucose (68-110) mg/dl Calcium 7.1 L* (8.5-10.1) mg/dL Calcium Adj for Albumin 8.1 L (8.5-10.1) mg/dL Albumin 2.8 L (3.4-5.0) g/dL 06/23/18 Range/Units 08:05 Hgb (11.6-15.3) gm/dL Hct (35.0-46.0) % MCV (80.0-100.0) fL MCH (27.0-34.0) pg MCHC (32.0-36.0) % RDW (11.6-17.2) % Neut % (Auto) (16.0-70.0) % Dimorphic RBCs (None) Potassium (3.5-5.1) meq/L BUN (7-18) mg/dL POC Glucose 118 H (68-110) mg/dl Calcium (8.5-10.1) mg/dL Calcium Adj for Albumin (8.5-10.1) mg/dL Albumin (3.4-5.0) g/dL Short CBC 06/22/18 06/23/18 Range/Units 19:03 06:30 WBC 9.4 (4.0-11.0) th/mm3 Hgb 9.2 L 9.2 L (11.6-15.3) gm/dL Hct 27.7 L 29.6 L (35.0-46.0) % Plt Count 256 (150-450) th/mm3 BMP 06/23/18 06:30 Sodium 141 Potassium 2.9 L* Chloride 105 Carbon Dioxide 28.7 BUN 2 L Creatinine 0.54 Calcium 7.1 L* Liver Function 06/23/18 Range/Units 06:30 Albumin 2.8 L (3.4-5.0) g/dL <Lucia Esposito R - 06/23/18 16:06> Abnormal lab results 06/22/18 06/23/18 06/23/18 Range/Units 19:03 06:30 06:30 Hgb 9.2 L 9.2 L (11.6-15.3) gm/dL Hct 27.7 L 29.6 L (35.0-46.0) % MCV 71.6 L (80.0-100.0) fL MCH 22.4 L (27.0-34.0) pg MCHC 31.2 L (32.0-36.0) % RDW 35.3 H (11.6-17.2) % Neut % (Auto) 82.3 H (16.0-70.0) % Dimorphic RBCs Present H (None) Potassium 2.9 L* (3.5-5.1) meq/L BUN 2 L (7-18) mg/dL POC Glucose (68-110) mg/dl Calcium 7.1 L* (8.5-10.1) mg/dL Calcium Adj for Albumin 8.1 L (8.5-10.1) mg/dL Albumin 2.8 L (3.4-5.0) g/dL 06/23/18 Range/Units 08:05 Hgb (11.6-15.3) gm/dL Hct (35.0-46.0) % MCV (80.0-100.0) fL MCH (27.0-34.0) pg MCHC (32.0-36.0) % RDW (11.6-17.2) % Neut % (Auto) (16.0-70.0) % Dimorphic RBCs (None) Potassium (3.5-5.1) meq/L BUN (7-18) mg/dL POC Glucose 118 H (68-110) mg/dl Calcium (8.5-10.1) mg/dL Calcium Adj for Albumin (8.5-10.1) mg/dL Albumin (3.4-5.0) g/dL Short CBC 06/22/18 06/23/18 Range/Units 19:03 06:30 WBC 9.4 (4.0-11.0) th/mm3 Hgb 9.2 L 9.2 L (11.6-15.3) gm/dL Hct 27.7 L 29.6 L (35.0-46.0) % Plt Count 256 (150-450) th/mm3 BMP 06/23/18 06:30 Sodium 141 Potassium 2.9 L* Chloride 105 Carbon Dioxide 28.7 BUN 2 L Creatinine 0.54 Calcium 7.1 L* Liver Function 06/23/18 Range/Units 06:30 Albumin 2.8 L (3.4-5.0) g/dL <Labell R2,Shelley - 06/23/18 11:27> Physical Exam Vital signs: Vital Signs 06/22/18 19:50 06/22/18 23:35 06/23/18 05:15 Temperature 98.1 F 98.6 F 97.7 F Pulse Rate 104 H 109 H 107 H Respiratory Rate 18 18 18 Blood Pressure 129/83 110/56 L 133/68 Pulse Oximetry 95 94 L 94 L 06/23/18 08:07 06/23/18 12:05 Temperature 98.4 F 98.3 F Pulse Rate 101 H 101 H Respiratory Rate 16 16 Blood Pressure 129/65 147/69 H Pulse Oximetry 94 L 96 Intake & Output 06/22/18 06/23/1819 18:59 06:59 18:59 Intake Total 100 / 100 100 / 100 500 / 500 Balance 100 / 100 100 / 100 500 / 500 Weight 72.2 kg Intake: IV 100 / 100 100 / 100 100 / 100 Protonix Inj 80 MG In NS Inj 100 / 100 100 / 100 100 / 100 100 ML @ 10 mls/hr IV.CONT Q[facility]H [facility] Rx#:[id number] Anesthesia Amount 400 / 400 Other: # Voids 3 Date of Last Bowel Movement 06/23/18 06/23/18 <Lucia Esposito R - 06/23/18 16:06> Vital Signs 06/22/18 12:00 06/22/18 16:00 06/22/18 19:50 Temperature 98.2 F 97.0 F L 98.1 F Pulse Rate 99 H 99 H 104 H Respiratory Rate 18 20 18 Blood Pressure 140/68 154/73 H 129/83 Pulse Oximetry 99 97 95 06/22/18 23:35 06/23/18 05:15 06/23/18 08:07 Temperature 98.6 F 97.7 F 98.4 F Pulse Rate 109 H 107 H 101 H Respiratory Rate 18 18 16 Blood Pressure 110/56 L 133/68 129/65 Pulse Oximetry 94 L 94 L 94 L Intake & Output 06/22/18 06/23/18 06/23/18 18:59 06:59 18:59 Intake Total 100 / 100 100 / 100 Balance 100 / 100 100 / 100 Weight 72.2 kg Intake: IV 100 / 100 100 / 100 Protonix Inj 80 MG In NS Inj 100 / 100 100 / 100 100 ML @ 10 mls/hr IV.CONT Q10H [facility] Rx#:[id number] Other: # Voids 3 Date of Last Bowel Movement 06/23/18 <Labell Elvis Meléndezin - 06/23/18 11:27> Narrative: GENERAL: Pleasant elderly female sitting up in chair comfortably. SKIN: No rashes, ecchymoses or lesions. Cool and dry. No facial pallor. HEAD: Atraumatic. Normocephalic. EYES: Pupils equal round and reactive. Extraocular motions intact. ENT: Nose without bleeding, purulent drainage. CARDIOVASCULAR: Regular rate and rhythm. RESPIRATORY: Breath sounds equal bilaterally. Clear to auscultation. GASTROINTESTINAL: Positive bowel sounds. Abdomen soft, without guarding. MUSCULOSKELETAL: Extremities without clubbing, cyanosis, or edema. No joint tenderness or effusion noted. No calf tenderness. NEUROLOGICAL: Awake and alert. Moves all extremities without difficulty. Normal speech. <Lindsey Shelley Meléndez - 06/23/18 11:27> Assessment and Plan - Assessment (1) Anemia Code(s): D64.9 - Anemia, unspecified Status: Acute (2) Acute GI bleeding Code(s): K92.2 - Gastrointestinal hemorrhage, unspecified Status: Acute (3) Acute hypokalemia Code(s): E87.6 - Hypokalemia Status: Acute (4) COPD (chronic obstructive pulmonary disease) Code(s): J44.9 - Chronic obstructive pulmonary disease, unspecified Status: Chronic (5) Diabetes Code(s): E11.9 - Type 2 diabetes mellitus without complications Status: Chronic (6) Nutrition, metabolism, and development symptoms Code(s): R63.8 - Other symptoms and signs concerning food and fluid intake Status: Acute (7) DVT prophylaxis Status: Acute <Lucia Esposito - 06/23/18 16:06> (1) Anemia Code(s): D64.9 - Anemia, unspecified Status: Acute Plan: Hgb stable. Patient asymptomatic. GI consulted; plan for colonoscopy today. Appreciate further recommendations and clearance for discharge. Hospital Course: Patient admitted 06/20, found to be severely anemic upon presentation in the ED. Her hemoglobin was 4.1. MCV was microcytic at 54.5 demonstrating this is likely a chronic process. The patient's vitals have been stable. Patient has had dark stools and emesis for 7 weeks indicating probable GI etiology for her anemia. Patient is status post 4 units of packed red blood cells and continues on Protonix drip. Iron level is 13 mcg/dl, TIBC 489 mcg/dl, percent iron sat 2.7%, ferritin 3 ng/ dl. EGD 06/21/18: Per GI "IMPRESSIONS: 1. There was LA Class A esophagitis noted. 2. Non-bleeding angioectasia in the gastric fundus. 3. Normal duodenal mucosa in the duodenal bulb. 4. Small angiodysplastic lesion with no bleeding found in the 2nd part of the duodenum; Argon plasma coagulation was applied to the site(s); with good treatment effect. 5. Retroflexed views revealed no abnormalities. RECOMMENDATIONS: 1. Colonoscopy 2. Continue PPI 3. Monitor labs" (2) Acute GI bleeding Code(s): K92.2 - Gastrointestinal hemorrhage, unspecified Status: Acute Plan: See Plan for Anemia. (3) Acute hypokalemia Code(s): E87.6 - Hypokalemia Status: Acute Plan: K 2.9. Replenish with PO K. Monitor, repeat K level at 18:00. Hospital Course: Patient's potassium was 2.4 upon admission, improved to 3.4 on 06/21 after receiving 20 mEq IV potassium and 80 mEq p.o. potassium on 06/20. Hypokalemia is likely due to the chronic emesis. Vomiting has subsided since admission. (4) COPD (chronic obstructive pulmonary disease) Code(s): J44.9 - Chronic obstructive pulmonary disease, unspecified Status: Chronic Plan: Patient with history of COPD. Continue home Spiriva and Symbicort. (5) Diabetes Code(s): E11.9 - Type 2 diabetes mellitus without complications Status: Chronic Plan: Patient with history of diabetes. Hold home pioglitazone and Januvia. Low-dose sliding scale insulin. No hypoglycemic events reported. (6) Nutrition, metabolism, and development symptoms Code(s): R63.8 - Other symptoms and signs concerning food and fluid intake Status: Acute Plan: Fluids: Tolerates PO. Diet: NPO after midnight in anticipation of colonoscopy today. Electrolytes: Monitor replete as necessary. (7) DVT prophylaxis Status: Acute Plan: Patient may be actively bleeding as evidenced by Hgb on admission. Bilateral SCDs. <Shelley Cho - 06/23/18 11:13> - Assessment and Plan Discharge Planning: Pending GI clearance. <Shelley Cho - 06/23/18 11:27> - Attending Attestation This patient was seen and examined. The assessment and plan was discussed with the resident physician and I am in agreement with continued medical care as documented in this encounter. 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 <[facility],Shelley - Last Filed: 06/23/18 11:13> (1) Anemia Qualifiers: Anemia type: other cause Other causes of anemia: acute posthemorrhagic Qualified Code(s): D62 - Acute posthemorrhagic anemia (5) Diabetes Qualifiers: Diabetes mellitus type: type 2 <Lucia Esposito - Last Filed: 06/23/18 16:06> (1) Anemia Qualifiers: Anemia type: other cause Other causes of anemia: acute posthemorrhagic Qualified Code(s): D62 - Acute posthemorrhagic anemia (5) Diabetes Qualifiers: Diabetes mellitus type: type 2 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
[2018-06-23] MEDS ORDERED: Lidocaine PF 1% Inj 5 ML Syringe OTHER ONE (15:07)
--- NOTE | 2018-06-23 15:41 | GIPROC ---
[facility] [address] [facility]. [facility], [address] COLONOSCOPY PROCEDURE REPORT EXAM DATE: 06/23/2018 PATIENT NAME: Avani Lucia MR #: [id number] BIRTHDATE: 1950 ENDOSCOPIST: Primo Lovell MD ORDER #: [id number] MANUFACTURING INSPECTOR: Chel Siegel and Vida Gray STATUS: inpatient INDICATIONS: The patient is a 68 yr old female here for a colonoscopy due to iron deficiency anemia PROCEDURE PERFORMED: Colonoscopy with biopsy MEDICATIONS: None and Per Anesthesia. PREP QUALITY: The [place] Bowel Prep Score was Right colon 2, Mid colon 1, and Left colon 1. Total = 4. ESTIMATED BLOOD LOSS: None CONSENT: The patient understands the risks and benefits of the procedure and understands that these risks include, but are not limited to: sedation, allergic reaction, infection, perforation and/or bleeding. Alternative means of evaluation and treatment include, among others: physical exam, x-rays, and/or surgical intervention. The patient elects to proceed with this endoscopic procedure. medical equipment was checked for proper function. Hand hygiene and appropriate measures for infection prevention was taken. After the risks, benefits and alternatives of the procedure were thoroughly explained, Informed consent was verified, confirmed and timeout was successfully executed by the treatment team. A digital exam revealed external hemorrhoids The Pentax [id number] endoscope was introduced through the anus and advanced to the cecum, which was identified by both the appendix and ileocecal valve. The instrument was then slowly withdrawn as the colon was fully examined. COLON FINDINGS: A polypoid shaped sessile polyp ranging between 3-5mm in size was found in the sigmoid colon. A polypectomy was performed with cold forceps. The resection was complete and the polyp tissue was completely retrieved. Retroflexed views revealed internal hemorrhoids and Retroflexed views revealed medium internal hemorrhoids The scope was then completely withdrawn from the patient and the procedure terminated. PROCEDURE WITHDRAWAL TIME:6minutes ADVERSE EVENTS: There were no complications. IMPRESSIONS: 1. A sessile polyp ranging between 3-5mm in size was found in the sigmoid colon; polypectomy was performed with cold forceps 2. Retroflexed views revealed internal hemorrhoids 3. Retroflexed views revealed medium internal hemorrhoids 4. Revealed external hemorrhoids RECOMMENDATIONS: 1. Await biopsy results. Biopsy results will not be ready for 7-10 days. If you don't hear from us in two weeks, call our office for results. 2. Continue surveillance 3. Yearly hemoccult RECALL: Return 1 month Colonoscopy Primo Lovell MD eSigned: Primo Lovell MD 06/23/2018 3:41 PM cc: PATIENT NAME: Avani Lucia MR#: [id number]
[2018-06-24] MEDS: Sod Chloride 0.9% Inj 1,000 ML IV.CONT SCH ×2 (02:03→08:55)
[2018-06-24] MEDS: Pantoprazole Inj 80 MG in Sodium Chlor 0.9% Inj 100 ML IV.CONT SCH (02:04)
[2018-06-24] MEDS: Levothyroxine 50 MCG Tablet PO SCH (06:15)
[2018-06-24] MEDS: Insulin NovoLOG Aspart Correctional Sugar Inj SQ SCH ×2 (06:17→08:54)
[2018-06-24 07:05] LABS: Hematocrit 30.6 % (35.0-46.0); Hemoglobin 9.7 gm/dL (11.6-15.3); Mean Corpuscular HGB Conc 31.7 % (32.0-36.0); Mean Corpuscular Hemoglobin 23.2 pg (27.0-34.0); Mean Corpuscular Volume 73.3 fL (80.0-100.0); Platelet Count 256 th/mm3 (150-450); Red Blood Count 4.18 mil/mm3 (4.00-5.30); Red Cell Distribution Width 36.1 % (11.6-17.2); White Blood Count 8.4 th/mm3 (4.0-11.0)
[2018-06-24 07:36] LABS: Anion Gap 7 meq/L (5-15); Blood Urea Nitrogen 2 mg/dL (7-18); Calcium 7.3 mg/dL (8.5-10.1); Carbon Dioxide 28.3 meq/L (21.0-32.0); Chloride 105 meq/L (98-107); Glomerular Filtration Rate Greater Than 89 mL/min (>89); Glucose,Random 93 mg/dL (74-106); Potassium 3.3 meq/L (3.5-5.1); Sodium 140 meq/L (136-145)
[2018-06-24 07:55] LABS: Albumin 2.8 g/dL (3.4-5.0); Calcium-Albumin Corrected 8.3 mg/dL (8.5-10.1)
[2018-06-24] MEDS: Budesonide-Formoterol 160/4.5 MCG 6 GM Inhaler INH SCH (08:59)
[2018-06-24] MEDS: Tiotropium Bromide 18 MCG/ACT Inhaler INH SCH (08:59)
--- NOTE | 2018-06-24 10:11 | P.PNFP ---
Subjective Interval history: Patient was seen and evaluated this morning. She reports feeling well. "I am going home today." GI cleared patient per nurse. GI requesting follow-up in two weeks to discuss results and continue outpatient follow-up. Patient denies chest pain, shortness of breath, nausea, vomiting, diarrhea and constipation. She denies dizziness, weakness. She had minimal food intake yesterday, which she attributes to the poor quality of the food, not a lack of desire or ability to eat. All questions were answered. <Shelley Cho - 06/24/18 10:10> Results - Labs Result diagrams: 06/24/18 06:19 06/24/18 06:19 <Guicho Amezcua - 06/24/18 10:19> Abnormal lab results 06/23/18 06/24/18 06/24/18 Range/Units 19:00 06:19 06:19 Hgb 9.7 L (11.6-15.3) gm/dL Hct 30.6 L (35.0-46.0) % MCV 73.3 L (80.0-100.0) fL MCH 23.2 L (27.0-34.0) pg MCHC 31.7 L (32.0-36.0) % RDW 36.1 H (11.6-17.2) % Potassium 3.0 L 3.3 L (3.5-5.1) meq/L BUN 2 L (7-18) mg/dL Calcium 7.3 L* (8.5-10.1) mg/dL Calcium Adj for Albumin 8.3 L (8.5-10.1) mg/dL Albumin 2.8 L (3.4-5.0) g/dL Short CBC 06/24/18 Range/Units 06:19 WBC 8.4 (4.0-11.0) th/mm3 Hgb 9.7 L (11.6-15.3) gm/dL Hct 30.6 L (35.0-46.0) % Plt Count 256 (150-450) th/mm3 BMP 06/23/18 06/24/18 19:00 06:19 Sodium 140 Potassium 3.0 L 3.3 L Chloride 105 Carbon Dioxide 28.3 BUN 2 L Creatinine 0.58 Calcium 7.3 L* Liver Function 06/24/18 Range/Units 06:19 Albumin 2.8 L (3.4-5.0) g/dL <Guicho Amezcua - 06/24/18 10:19> Abnormal lab results 06/23/18 06/24/18 06/24/18 Range/Units 19:00 06:19 06:19 Hgb 9.7 L (11.6-15.3) gm/dL Hct 30.6 L (35.0-46.0) % MCV 73.3 L (80.0-100.0) fL MCH 23.2 L (27.0-34.0) pg MCHC 31.7 L (32.0-36.0) % RDW 36.1 H (11.6-17.2) % Potassium 3.0 L 3.3 L (3.5-5.1) meq/L BUN 2 L (7-18) mg/dL Calcium 7.3 L* (8.5-10.1) mg/dL Calcium Adj for Albumin 8.3 L (8.5-10.1) mg/dL Albumin 2.8 L (3.4-5.0) g/dL Short CBC 06/24/18 Range/Units 06:19 WBC 8.4 (4.0-11.0) th/mm3 Hgb 9.7 L (11.6-15.3) gm/dL Hct 30.6 L (35.0-46.0) % Plt Count 256 (150-450) th/mm3 BMP 06/23/18 06/24/18 19:00 06:19 Sodium 140 Potassium 3.0 L 3.3 L Chloride 105 Carbon Dioxide 28.3 BUN 2 L Creatinine 0.58 Calcium 7.3 L* Liver Function 06/24/18 Range/Units 06:19 Albumin 2.8 L (3.4-5.0) g/dL <Shelley Cho - 06/24/18 10:10> Physical Exam Vital signs: Vital Signs 06/23/18 12:05 06/23/18 15:50 06/23/18 15:55 Temperature 98.3 F 97.6 F Pulse Rate 101 H 97 H Respiratory Rate 16 16 Blood Pressure 147/69 H 126/67 Pulse Oximetry 96 97 99 06/23/18 16:00 06/23/18 16:10 06/23/18 16:15 Temperature 97.7 F Pulse Rate 98 H 97 H Respiratory Rate 16 16 Blood Pressure 134/61 136/70 Pulse Oximetry 99 95 95 06/23/18 19:35 06/23/18 23:35 06/24/18 04:20 Temperature 98.0 F 98.0 F Pulse Rate 100 H 97 H Respiratory Rate 18 18 18 Blood Pressure 117/55 L 114/55 L 119/59 L Pulse Oximetry 94 L 94 L 96 06/24/18 08:00 Temperature 97.6 F Pulse Rate 104 H Respiratory Rate 18 Blood Pressure 143/66 H Pulse Oximetry 96 Intake & Output 06/23/18 06/24/18 06/24/18 18:59 06:59 18:59 Intake Total 500 / 500 100 / 100 Balance 500 / 500 100 / 100 Weight 72.5 kg Intake: IV 100 / 100 100 / 100 Protonix Inj 80 MG In NS Inj 100 / 100 100 / 100 100 ML @ 10 mls/hr IV.CONT Q10H [facility] Rx#:[id number] Anesthesia Amount 400 / 400 Other: # Voids 3 Date of Last Bowel Movement 06/23/18 06/23/18 06/23/18 # Bowel Movements 10 <Guicho Amezcua - 06/24/18 10:19> Vital Signs 06/23/18 12:05 06/23/18 15:50 06/23/18 15:55 Temperature 98.3 F 97.6 F Pulse Rate 101 H 97 H Respiratory Rate 16 16 Blood Pressure 147/69 H 126/67 Pulse Oximetry 96 97 99 06/23/18 16:00 06/23/18 16:10 06/23/18 16:15 Temperature 97.7 F Pulse Rate 98 H 97 H Respiratory Rate 16 16 Blood Pressure 134/61 136/70 Pulse Oximetry 99 95 95 06/23/18 19:35 06/23/18 23:35 06/24/18 04:20 Temperature 98.0 F 98.0 F Pulse Rate 100 H 97 H Respiratory Rate 18 18 18 Blood Pressure 117/55 L 114/55 L 119/59 L Pulse Oximetry 94 L 94 L 96 06/24/18 08:00 Temperature 97.6 F Pulse Rate 104 H Respiratory Rate 18 Blood Pressure 143/66 H Pulse Oximetry 96 Intake & Output 0206/24/18 06/24/18 18:59 06:59 18:59 Intake Total 500 / 500 100 / 100 Balance 500 / 500 100 / 100 Weight 72.5 kg Intake: IV 100 / 100 100 / 100 Protonix Inj 80 MG In NS Inj 100 / 100 100 / 100 100 ML @ 10 mls/hr IV.CONT Q10H [facility] Rx#:[id number] Anesthesia Amount 400 / 400 Other: # Voids 3 Date of Last Bowel Movement 06/23/18 06/23/18 06/23/18 # Bowel Movements 10 <Shelley Cho - 06/24/18 10:10> Narrative: GENERAL: Pleasant elderly female sitting up in chair comfortably. SKIN: No rashes, ecchymoses or lesions. Cool and dry. HEAD: Atraumatic. Normocephalic. EYES: Pupils equal round and reactive. Extraocular motions intact. ENT: Nose without bleeding, purulent drainage. CARDIOVASCULAR: Regular rate and rhythm. RESPIRATORY: Breath sounds equal bilaterally. Clear to auscultation. GASTROINTESTINAL: Positive bowel sounds. Abdomen soft, without guarding. MUSCULOSKELETAL: Extremities without clubbing, cyanosis, or edema. No joint tenderness or effusion noted. No calf tenderness. NEUROLOGICAL: Awake and alert. Moves all extremities without difficulty. Normal speech. <Shelley Cho - 06/24/18 10:10> Assessment and Plan - Assessment (1) Anemia Code(s): D64.9 - Anemia, unspecified Status: Acute (2) Acute GI bleeding Code(s): K92.2 - Gastrointestinal hemorrhage, unspecified Status: Acute (3) Acute hypokalemia Code(s): E87.6 - Hypokalemia Status: Acute (4) COPD (chronic obstructive pulmonary disease) Code(s): J44.9 - Chronic obstructive pulmonary disease, unspecified Status: Chronic (5) Diabetes Code(s): E11.9 - Type 2 diabetes mellitus without complications Status: Chronic (6) Nutrition, metabolism, and development symptoms Code(s): R63.8 - Other symptoms and signs concerning food and fluid intake Status: Acute (7) DVT prophylaxis Status: Acute <Guicho Amezcua - 06/24/18 10:19> (1) Anemia Code(s): D64.9 - Anemia, unspecified Status: Acute Plan: Hgb stable. Patient asymptomatic. GI consulted; cleared patient for discharge per nurse. * Colonoscopy 06/24/18; see results below. "IMPRESSIONS: 1. A sessile polyp ranging between 3-5mm in size was found in the sigmoid colon ; polypectomy was performed with cold forceps 2. Retroflexed views revealed internal hemorrhoids 3. Retroflexed views revealed medium internal hemorrhoids 4. Revealed external hemorrhoids RECOMMENDATIONS: 1. Await biopsy results. Biopsy results will not be ready for 7-10 days. If you don't hear from us in two weeks, call our office for results. 2. Continue surveillance 3. Yearly hemoccult RECALL: Return 1 month Colonoscopy" Hospital Course: Patient admitted 06/20, found to be severely anemic upon presentation in the ED. Her hemoglobin was 4.1. MCV was microcytic at 54.5 demonstrating this is likely a chronic process. The patient's vitals have been stable. Patient has had dark stools and emesis for 7 weeks indicating probable GI etiology for her anemia. Patient is status post 4 units of packed red blood cells and continues on Protonix drip. Iron level is 13 mcg/dl, TIBC 489 mcg/dl, percent iron sat 2.7%, ferritin 3 ng/ dl. EGD 06/21/18: Per GI "IMPRESSIONS: 1. There was LA Class A esophagitis noted. 2. Non-bleeding angioectasia in the gastric fundus. 3. Normal duodenal mucosa in the duodenal bulb. 4. Small angiodysplastic lesion with no bleeding found in the 2nd part of the duodenum; Argon plasma coagulation was applied to the site(s); with good treatment effect. 5. Retroflexed views revealed no abnormalities. RECOMMENDATIONS: 1. Colonoscopy 2. Continue PPI 3. Monitor labs" (2) Acute GI bleeding Code(s): K92.2 - Gastrointestinal hemorrhage, unspecified Status: Acute Plan: See Plan for Anemia. (3) Acute hypokalemia Code(s): E87.6 - Hypokalemia Status: Acute Plan: K 3.3. Replenish with PO K. (4) COPD (chronic obstructive pulmonary disease) Code(s): J44.9 - Chronic obstructive pulmonary disease, unspecified Status: Chronic Plan: Patient with history of COPD. Continue home Spiriva and Symbicort. (5) Diabetes Code(s): E11.9 - Type 2 diabetes mellitus without complications Status: Chronic Plan: Patient with history of diabetes. Hold home pioglitazone and Januvia. Low-dose sliding scale insulin. No hypoglycemic events reported. (6) Nutrition, metabolism, and development symptoms Code(s): R63.8 - Other symptoms and signs concerning food and fluid intake Status: Acute Plan: Fluids: Tolerates PO. Diet: Cardiac diet. Electrolytes: Monitor replete as necessary. (7) DVT prophylaxis Status: Acute Plan: Bilateral SCDs. <Lindsey MeléndezShelley - 06/24/18 10:02> - Assessment and Plan Discharge Planning: Today; GI clearance. <Lindsey MeléndezShelley - 06/24/18 10:10> - Attending Attestation The exam, history, and the medical decision-making described in the above note were completed with the assistance of the resident physician. I reviewed and agree with the findings presented. I attest that I had a [id number] encounter with the patient on the same day, and personally performed and documented my assessment and findings in the medical record. Eager to go home today, she has been anxious and frustrated and believes that her pulse does rise from this. no more melena since admission. RRR, no edema, mild abdominal tenderness on exam. no acute distress or diaphoresis. Hgb stable in 9s duodenal angiodysplastic lesion lasered and colonic polyp biopsied Patient and both verbalized that this is not the end of care for this, but needs continued outpatient work up and follow up. She is stopping aspirin and any NSAIDs and will not drink alcohol Plans to call new PCP who sent her to hospital tomorrow AM to be seen soon. Getting outpatient GI follow up. 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 <[facility] Shelley Meléndez - Last Filed: 06/24/18 10:02> (1) Anemia Qualifiers: Anemia type: other cause Other causes of anemia: acute posthemorrhagic Qualified Code(s): D62 - Acute posthemorrhagic anemia (5) Diabetes Qualifiers: Diabetes mellitus type: type 2 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
== END 2018-06-24 10:45 | disposition home or self-care (01) | DRG 812 ==
LOC: NEPC 07:14 → NEDA 11:41 → N05 13:30
PROVIDERS: ADMIT Family Medicine; ATTEND Family Medicine
PROC: PANENDO (2018-06-21 11:56)
PROC: COLONOS (2018-06-23 15:07)
CPT/HCPCS: 36430; 74177; 76937; 80048; 80053; 81001; 82040; 82607; 82668; 82728; 82746; 82948; 82962; 83010; 83540; 83550; 83690; 84132; 84443; 85014; 85018; 85025; 85027; 85044; 85610; 85730; 86850; 86900; 86901; 86923; 88305; 90658; 90686; 90765; 90766; 90768; 90775; 93005; 96365; 96366; 96368; 96375; 99285; C9113; J2354; J2405; J2704; J3480; J7030; J7040; J7120; P9016; Q2038; Q9967